=== PATIENT | male | born 1950 | race Caucasian/White ===

== ENCOUNTER → 2016-05-22 | Day surgery (SDC) | payer MEDICARE, MEDICAID ==
[~2016-05-22] VITALS: Ht 182.9 cm; Wt 125.2 kg
[~2016-05-22] MED LIST: APAP/OXYCODONE1 TA1 PO; LISINOPRIL/HCTZ1 TA3 PO; METFORMIN500 MG PO; NEURONTIN800 MG PO; OMEPRAZOLE40 MG PO; PERCOCET 325 MG1 TA4 PO; PERCOCET 5/3251 EACH PO; POTASSIUM CHLO10 ME3 PO; ZANAFLEX4 M1 PO
[2016-05-22 14:07] VITALS: BP 134/85
[2016-05-22 14:32] VITALS: BP 134/85
[2016-05-22 14:33] VITALS: BP 134/85
--- NOTE | 2016-05-22 14:37 | Procedure Note ---
Procedure detail Date of procedure: 05/22/16 Anesthesiologist: Juan David farley CRNA Complications: None Pre-procedure diagnosis: Degenerative disease lumbar spine multiple levels lumbar radiculopathy symptoms. Lumbar spondylosis. Post-procedure diagnosis: Same. Indications for procedure: Patient's a pleasant 66-year-old white male were treating her pain clinic for chronic low back pain secondary to degenerative disease lumbar spine with levels as well as disc herniation L4-5, multiple level disc bulge. Patient's main complaint today is bilateral leg radiculopathy symptoms. Patient states they feel like muscle "spasms" down the backs of his legs. Patient rates his pain 7/ 10. We are medically manage the patient with Percocet 7.5 mg 1 by mouth 4 times a day. Patient reports the pain medicine decrease his pain by 50-75 percent. Patient does not reporting side effects from pain medication. Patient presents today for lumbar epidural steroid injection at the L4-5 level. Procedure detail: Procedure: Lumbar epidural steroid injection under fluoroscopy Informed consent was obtained and the risks and benefits of the procedure were explained to the patient. The patient was taken to the procedure room and noninvasive monitors placed, including noninvasive blood pressure cuff and pulse oximeter. The back was viewed using C-arm Fluoroscopy and prepped using Betadine as a cleansing solution and the L4-L5 interspace was palpated. Skin and subcutaneous tissues were anesthetized using lidocaine 1.5% and a 25-gauge needle. After this, an 18-gauge Touhy epidural needle was placed into the L4-L5 interspace and advanced using fluoroscopic guidance and loss of resistance to air until the epidural space was encountered. After confirmation of needle placement in the epidural space, with dye, a solution containing lidocaine 1.5%, 4 mL and Depo-Medrol 80 mg were incrementally injected into the lumbar epidural space. The patient tolerated the procedure well with no complications. The patient was observed in the Pain Clinic and then discharged home neurologically intact. Plan and disposition: Patient was reevaluated 10 minutes post procedure. He is doing quite well. He'll follow up with us in the pain clinic for further evaluation. at [id number]
[2016-05-22 14:44] VITALS: BP 136/90
--- OUTSIDE RECORDS SUMMARY | 2016-05-22 17:46 | External Medical Summary Rpt ---
Author Author , Organization [employer] Address Unknown Phone Unavailable Care Team Providers Care Car Rental Agent Name Role Phone ONE Change, Unavailable Unavailable ONE Change [facility]ARTINI[facility]AIS [facility] Unavailable Unavailable LABORATORI, [facility] AMISHA DIETRICH MD, PSC, Unavailable Unavailable AMISHA DIETRICH MD, PSC [facility] AND, AYOOB AND Unavailable Unavailable SHANNA BURT, Unavailable Unavailable M.Bill.P.S.CAyush, SHANNA BURT M.D.P.S.CAyush [facility] Unavailable Unavailable [facility] Unavailable Unavailable [facility], [facility] MARILYN SANDERS Unavailable Unavailable MARILYN SHERMAN, MARILYN Unavailable Unavailable LANE BUX ANJ, BUX ANJ Unavailable Unavailable [facility] Unavailable [facility] CELLAROSI - YORBA Unavailable Unavailable PAT, CELLAROSI - YORBA PAT ANTWON BASHIR, ANTWON BASHIR Unavailable Unavailable [facility], Unavailable Unavailable [facility] Unavailable Unavailable SPECIALIST, [facility] SPECIALIST [facility] # [id number], Unavailable Unavailable [facility] # [id number] [facility] [place]available [place], [facility] [place] ESTUS LINDA, ESTUS LINDA Unavailable Unavailable ESTUS, JAVI, ESTUS, Unavailable Unavailable JAVI FINYVES ELL, FINCHUM Unavailable Unavailable [facility] Un[facility], [facility] CAYETANOABBIE JERONIMOA G, Unavailable Unavailable CAYETANOABBIE JERONIMOA G FLASH, JON P, Unavailable Unavailable FLASH, JON P ANDREA BAR, ANDREA BAR Unavailable Unavailable [facility], [facility], Unavailable Unavailable [facility] CUONG DE LA O, CUONG DE LA O Unavailable Unavailable [facility] Unavailable Unavailable [facility]AT, [facility] Un[facility] Unavailable Unavailable [facility], [facility] Unavailable Unavailable [facility], [facility] Unavailable Unavailable [facility], [facility] Unavailable Unavailable [facility], [facility], Unavailable Unavailable [facility] KAREN CRI, KAREN CRI Unavailable Unavailable SHAD LAURA, SHAD LAURA Unavailable Unavailable SHAD LAURA, SHAD LAURA Unavailable Unavailable THI[facility] FAYETTE URBAN Unavailable Unavailable COGOVT, [facility] Unavailable Unavailable COGOVT, [facility] Unavailable Unavailable LABORATO, [facility] Unavailable [facility]available LABORATORY, [facility] Unavailable Unavailable PHARMACY, [facility] LINGREEN DENNIS, Unavailable Unavailable LINGREEN DENNIS MYRA HAM, MYRA HAM Unavailable Unavailable MYRA HAM, MYRA HAM Unavailable Unavailable [facility] Unavailable Unavailable SERVICES, [facility] MITTLESTEADT KENISHA, Unavailable Unavailable MITTLESTEAD[facility] KENISHA MORRIN, MORRIN Unavailable Unavailable [facility] Unavailable Unavailable [facility], [facility], [facility]available Unavailable [facility], Unavailable Unavailable [facility] Unavailable Unavailable INCORPORAT, [facility] RABIEE ABD, RABIEE Unavailable Unavailable [facility] Unavailable [facility] [place], [facility] Unavailable Unavailable [id number] # [id number], [facility] [id number] # [id number] ANTONIO JUSTUS, ANTONIO JUSTUS Unavailable Unavailable MARILYNN SIB, MARILYNN SIB Unavailable Unavailable HEATHER NANCY, HEATHER NANCY Unavailable Unavailable [facility] SPRUIELL LAW, Unavailable Unavailable SPRUIE[facility] LAW SPRUIELL LAW, Unavailable Unavailable [facility] JACQUE AUGUSTO, JACQUE Unavailable Unavailable AUGUSTO JACQUE AUGUSTO, JACQUE Unavailable Unavailable AUGUSTO PHANI KAITLYNN, PHANI Unavailable Unavailable KAITLYNN PHANI KAITLYNN, PHANI Unavailable Unavailable KAITLYNN WADDLES RYA, WADDLES Unavailable Unavailable [id number] # Unavailable Unavailable [id number], [facility][id number] # [id number] [id number] # Unavailable Unavailable [id number], [facility] #[id number] # [id number] DAVID HERCULES Unavailable Unavailable JEREMY STEWART, Unavailable Unavailable JEREMY HERNANDEZ SEMAJ W, SEMAJ W Unavailable Unavailable JEN MAT, JEN MAT Unavailable Unavailable Purpose Continuity of Care Document - 03-09-2009 through 2016 Problems Code Diagnosis DOS Provider Status R76.8 OTHER 05-07-2016 SPECIFIED ABNORMAL IMMUNOLOGIC AL FINDINGS IN SERUM M170 BILATERAL 04-04-2016 [facility] OSTEOARTHRI ASSOCIAT TIS OF KNEE K91064 PAIN IN 04-04-2016 [place] [facility] ASSOCIAT S58299 PAIN IN 04-04-2016 [place] [facility] E119 TYPE 2 04-02-2016 [facility] DIABET[facility] MELLITUS MEDICAL WITHOUT GROUP COMPLICATIO NS G8929 OTHER 04-02-2016 [facility]RONIC [facility] PAIN MEDICAL GROUP I10 ESSENTIAL 04-02-2016 [facility] PRIMARY HEALTH HYPERTENSIO MEDICAL N GROUP J431 PANLOBULAR 04-02-2016 [facility] EMPHYSEMA [facility] MEDICAL GROUP K219 GASTRO-ESOP 04-02-2016 [facility] H REFLUX HEALTH DISEASE MEDICAL WITHOUT GROUP ESOPHAGITIS M545 LOW BACK 04-02-2016 [facility] PAIN [facility]ALTH [facility]ICAL GROUP 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-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 M41582 USP 02-06-2016 [facility] CURRENT USE [facility] OF OPIATE INC ANALGESIC Q53477 EFFUSION 12-02-2015 [facility] RIGHT KNEE [facility] M5116 INTERVERTEB 10-10-2015 [facility] RAL DISC [facility] D/O INC W/RADICULOP ATHY LUMB RGN L36811 OTHER LONG 10-10-2015 [facility] TERM [facility] CURRENT INC DRUG THERAPY M19190 SPONDYLOSIS 04-29-2015 [facility] W/O [facility] MYELOPATH/R INC ADICULOPATH Y LUMB RGN M069 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, ARTHRITIS , PSC UNSPECIFIED D04013 SPONDYLOSIS 03-18-2015 [facility] W/O [facility] MYELOPATH/R INC ADICULPATHY LS RGN E785 HYPERLIPIDE 03-08-2015 [facility]IN [facility] UNSPECIFIED FAMILY CLINI M549 DORSALGIA 03-04-2015 [facility] UNSPECIFIED [facility] HOSP INC M5030 OTH 02-14-2015 [facility] CERVICAL [facility] DISC INC DEGENERATIO N UNS CERV REGION G894 CHRONIC 12-06-2014 [facility] PAIN [facility] SYNDROME FAMILY CLINI 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 UNS CLINI 80345 DIAB W/O 11-05-2014 [facility] COMP TYPE [facility] II/UNS NOT HOLDINGS STATED UNCNTRL 52564 DIAB 11-05-2014 [facility] W/NEURO [facility] MANIFESTS HOLDINGS TYPE II/UNS NOT UNCNTRL 4019 UNSPECIFIED 11-05-2014 [facility] ESSENTIAL [facility] HYPERTENSIO HOLDINGS N 73067 UNSPECIFIED 11-05-2014 [facility] [place] ARTHROPATHY HOLDINGS SITE UNSPECIFIED 74223 SHORTNESS 10-15-2014 [facility] [place] [facility] BREATH [facility] 7932 NONSPC ABN 10-15-2014 [facility] RAD&OTH HOSPITA EXAM OTH INTRTHOR ORGN 95956 UNSPECIFIED 10-06-2014 [facility] SLEEP [facility] DISTURBANCE FAMILY CLINI 7823 EDEMA 07-08-2014 [facility] 84885 ESOPHAGEAL 06-21-2014 [facility] REFLUX GROUND FAMILY CLINI 3670 HYPERMETROP 12-07-2013 SPRUIELL IA LAW 4011 ESSENTIAL 09-25-2013 [facility] N, BENIGN 17142 IMPOTENCE 09-25-2013 [facility] ORIGIN 73294 OTHER 09-25-2013 [facility] FATIGUE 7213 LUMBOSACRAL 08-06-2013 [facility] PAIN SPONDYLOSIS SPECIALIST WITHOUT MYELOPATHY 21844 DEGEN 08-06-2013 [facility] LUMBAR/LUMB H PAIN OSACRAL SPECIALIST INTERVERTEB RAL DISC 71271 SPINAL STEN 08-06-2013 [facility] LUMB REG H PAIN W/O SPECIALIST NEUROGENIC CLAUDICATIO N 7244 THORACIC/CLARY 08-06-2013 [facility] MBOSACRAL H PAIN NEURITIS/RA SPECIALIST DICULITIS UNSPEC 48395 DISPLCMT 05-26-2013 [facility] INTERVERT OF [place] DISC W/O MYELOPATHY 7248 OTHER 05-26-2013 [facility] SYMPTOMS [facility] REFERABLE OF [place] TO BACK 7384 ACQUIRED 05-26-2013 [facility] SPONDYLOLIS [facility] THESIS OF [place] 65753 DIAB W/O 04-14-2013 [facility] COMP TYPE II/UNS TYPE UNCNTRL V700 ROUTINE 04-14-2013 [facility] MEDICAL EXAM@HEALTH CARE FACL 60182 OTHER 12-08-2012 PHANI KAITLYNN CHRONIC PAIN 496 CHRONIC 12-08-2012 PHANI KAITLYNN AIRWAY OBSTRUCTION NEC 7242 LUMBAGO 12-08-2012 PH[facility] KAITLYNN 42318 OBESITY, 07-30-2012 [facility] OF UNSPECIFIED [facility] HOLDINGS 17411 CRAMP OF 01-04-2012 [facility]B [facility] 7140 RHEUMATOID 2012 MYRA HAM ARTHRITIS 32506 PRIMARY 2012 [facility] H[facility] LOCALIZED OSTEOARTHRO SIS LOWER LEG 43776 PAIN IN 12-19-2011 PHANI KAITLYNN JOINT PELVIC REGION AND THIGH 21970 PAIN IN 12-19-2011 [place] JOINT, [facility] LOWER LEG [facility] 7245 UNSPECIFIED 12-19-2011 [facility] 05391 OTHER 12-19-2011 [facility] [place] NONSPECIFIC [facility] ABNORMAL FINDING OF LUNG FIELD 5369 UNSPECIFIED 09-10-2011 SHAD SANCHEZ FUNCTIONAL DISORDER OF STOMACH 7226 DEGENERATIO 09-10-2011 [facility] SANCHEZ N INTERVERTEB RAL DISC SITE UNSPEC 77024 DIARRHEA 09-10-2011 [facility] SANC[facility]Z 97627 MORBID 06-27-2011 [facility] OBESITY V5869 LONG-TERM 06-25-2011 JACQUE CASAS (CURRENT) USE OF OTHER MEDICATIONS 29465 [employer] [facility] ULCR 06-17-2011 [facility] ACUT/CHRN HOSPITA W/O HEMOR PERF/OBST 16740 FEVER 06-17-2011 [facility] UNSPECIFIED [facility] 45595 ABDOMINAL 06-17-2011 [facility] [place] PA[facility] RIGHT RADIOLOGY UPPER QUADRANT 05067 ABDOMINAL 06-17-2011 [facility] PAIN, [facility] EPIGASTRIC [facility] 25690 NAUSEA WITH 06-11-2011 [facility] 78482 ABDOMINAL 06-11-2011 THIEN FAYETTE PAIN, URBAN UNSPECIFIED COGOVT SITE 61820 OSTEOARTHRO 05-25-2011 JACQUE CASAS S UNSPEC WHETHER GEN/LOC UNSPEC SITE 7234 BRACHIAL 05-25-2011 JACQUE CASAS NEURITIS OR RADICULITIS NOS 7099 UNSPECIFIED 03-26-2011 JACQUE CASAS DISORDER OF SKIN&SUBCUT ANEOUS TISSUE 92774 PAIN IN 03-26-2011 JACQUE CASAS JOINT, SHOULDER REGION 7291 UNSPECIFIED 03-26-2011 JACQUE CASAS MYALGIA AND MYOSITIS 7224 DEGENERATIO 03-24-2011 [facility] INTERVERTEB RAL DISC 62484 INJR OTH 03-24-2011 [place] [facility] SPE[facility] SERV INTRATHR FOUNDATIO ORGN W/O OPN WND CAV OTH 920 CONTUSION 03-24-2011 [facility] FACE SERV SCALP AND FOUNDATION NECK EXCEPT EYE 13217 INJURY OF 03-24-2011 [facility] F[facility] AND SERV NECK OTHER FOUNDATION AND UNSPECIFIED 9596 INJURY 03-24-2011 [place] [facility] OTHER AND SERV UNSPECIFIED FOUNDATIO HIP AND THIGH 9598 INJURY 03-24-2011 THI[facility] FAYETTE OTH&UNSPEC URBAN OTH SPEC COGOVT SITES INCL MULTIPLE E8889 UNSPECIFIED 03-24-2011 [facility] FALL SERV [facility] 7243 SCIATICA 02-13-2011 JACQUE CASAS 7292 UNSPECIFIED 02-13-2011 JACQUE CASAS NEURALGIA NEURITIS AND RADICULITIS V5883 ENCOUNTER 02-13-2011 [facility] DRUG MONITORING 78067 UNSPECIFIED 08-10-2010 [place] [facility] CY 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 7202 SACROILIITI 04-12-2010 [facility] S NOT BURT, ELSEWHERE [facility] CLASSIFIED 7862 COUGH 03-08-2010 [facility] 7931 NONSPEC 03-08-2010 [facility] [place] FIND RAD [facility]IOLOG[facility] OTH EXAM BODY STRUCT LUNG FIELD 32599 CHEST PAIN 11-22-2009 NEW UNSPECIFIED [facility] PSC 3569 UNSPEC 09-02-2009 [facility] HEREDIT&IDI CLINIC OPATHI LABORATORY PERIPHERAL NEUROPATHY 7866 SWELLING, 09-02-2009 [place] [facility] IN [facility] CHEST 61404 OTHER 04-18-2009 [place] [facility] DISEASES OF SERV LUNG NOT FOUNDATIO ELSEWHERE CLASSIFIED 2357 NEOPLASM 04-01-2009 [facility] TR[facility] BRONCHUS&CLARY NG 7856 ENLARGEMENT 03-25-2009 [facility] [place] OF LYMPH RADIOLOGY NODES 7910 PROTEINURIA 03-09-2009 [facility] Allergies, Adverse Reactions, Alerts Clinical Alert Notifications Alert Diabetes: no A1C in the last 6 months Diabetes: no eye exam in the last 365 days Diabetes: no influenza vaccine in the last 365 days Diabetes: no lipid panel in the last 365 days Diabetes: no urine protein screening in the last 365 days Medications Na ND Rx Da Fi Fi Am Da Di Ph RX Ph St me C No te ll ll ou ys ag ar # ys at rm s nt no ma ic us Or Da si cy ia de te s n re d OX 00 10 10 0 15 7 PA 20 FL Ac YC 40 -0 -0 .0 SA 97 IN ti OD 68 4- 4- 00 DE 69 CH ve ON 51 20 20 NA 3 UM E 50 11 11 HC 1 PH EL L AR LE 15 MA N CY J MG TA BL ET GA 16 10 10 1 30 30 PA 61 FL Ac BA 71 -0 -0 .0 SA 08 IN ti PE 40 4- 4- 00 DE 75 CH ve NT 66 20 20 NA 7 UM IN 20 11 11 2 PH EL 30 AR LE 0 MA N MG CY J CA PS UL E ME 00 10 10 1 30 30 PA 61 FL Ac LO 37 -0 -0 .0 SA 08 IN ti XI 81 4- 4- 00 DE 75 CH ve CA 06 20 20 NA 8 UM M 60 11 11 7. 5 PH EL 5 AR LE MG MA N CY J TA BL ET FU 00 05 09 3 30 30 LE 26 WI Ac RO 05 -3 -0 .0 XI 99 TT ti SE 44 1- 8- 00 NG 52 MA ve KS 29 20 20 TO N DE 72 11 11 N WI 5 CL LL 20 IN IA IC M MG PH TA AR BL MA ET CY OX 00 08 09 0 18 30 PA 20 CL Ac YC 40 -0 -0 0. SA 97 AR ti OD 68 4- 2- 00 DE 22 K ve ON 53 20 20 0 NA 9 PA E 00 11 11 UL HC 1 PH A L AR 30 MA CY MG TA BL ET GA 16 08 09 1 30 30 PA 61 CL Ac BA 71 -0 -0 .0 SA 08 AR ti PE 40 4- 2- 00 DE 32 K ve NT 66 20 20 NA 2 PA IN 20 11 11 UL 2 PH A 30 AR 0 MA MG CY CA PS UL E GA 16 08 08 1 30 30 PA 61 CL Ac BA 71 -0 -0 .0 SA 08 AR ti PE 40 4- 5- 00 DE 32 K ve NT 66 20 20 NA 2 PA IN 20 11 11 UL 2 PH A 30 AR 0 MA MG CY CA PS UL E OX 00 08 08 0 18 30 PA 20 CL Ac YC 40 -0 -0 0. SA 96 AR ti OD 68 4- 5- 00 DE 81 K ve ON 53 20 20 0 NA 2 PA E 00 11 11 UL HC 1 PH A L AR 30 MA CY MG TA BL ET FU 00 05 08 3 30 30 LE 26 WI Ac RO 05 -3 -0 .0 XI 99 TT ti SE 44 1- 1- 00 NG 52 MA ve KS 29 20 20 TO N DE 72 11 11 N WI 5 CL LL 20 IN IA IC M MG PH TA AR BL MA ET CY 52 06 07 0 18 30 PA 20 FL Ac 15 -0 -0 0. SA 96 IN ti 20 1 7 DE 39 CH ve 21 20 20 0 NA 3 UM 50 11 11 2 PH EL AR LE MA N CY J GA 16 06 07 1 30 30 PA 61 FL Ac BA 71 -0 -0 .0 SA 07 IN ti PE 40 1 7 DE 84 CH ve NT 66 20 20 NA 7 UM IN 20 11 11 2 PH EL 30 AR LE 0 MA N MG CY J CA PS UL E AM 00 06 07 1 30 30 PA 61 FL Ac IT 60 -0 -0 .0 SA 07 IN ti RI 32 1 7 DE 84 CH ve PT 21 20 20 NA 8 UM YL 33 11 11 IN 2 PH EL E AR LE HC MA N L CY J 25 MG TA B ME 00 06 07 1 30 30 PA 61 FL Ac LO 37 -0 -0 .0 SA 07 IN ti XI 81 1 7 DE 84 CH ve CA 06 20 20 NA 9 UM M 60 11 11 7. 1 PH EL 5 AR LE MG MA N CY J TA BL ET 52 06 06 0 18 30 PA 20 FL Ac 15 -0 -0 0. SA 95 IN ti 20 1- 3 00 DE 92 CH ve 21 20 20 0 NA 3 UM 50 11 11 2 PH EL AR LE MA N CY J GA 16 06 06 1 30 30 PA 61 FL Ac BA 71 -0 -0 .0 SA 07 IN ti PE 40 1- 3- 00 DE 84 CH ve NT 66 20 20 NA 7 UM IN 20 11 11 2 PH EL 30 AR LE 0 MA N MG CY J CA PS UL E AM 00 06 06 1 30 30 PA 61 FL Ac IT 60 -0 -0 .0 SA 07 IN ti RI 32 1- 3- 00 DE 84 CH ve PT 21 20 20 NA 8 UM YL 33 11 11 IN 2 PH EL E AR LE HC MA N L CY J 25 MG TA B ME 00 06 06 1 30 30 PA 61 FL Ac LO 37 -0 -0 .0 SA 07 IN ti XI 81 1- 3- 00 DE 84 CH ve CA 06 20 20 NA 9 UM M 60 11 11 7. 1 PH EL 5 AR LE MG MA N CY J TA BL ET FU 00 05 05 3 30 30 LE 26 WI Ac RO 05 -3 -3 .0 XI 99 TT ti SE 44 1- 1- 00 NG 52 MA ve KS 29 20 20 TO N DE 72 11 11 N WI 5 CL LL 20 IN IA IC M MG PH TA AR BL MA ET CY GA 16 02 05 1 30 30 PA 61 CL Ac BA 71 -0 -0 .0 SA 07 AR ti PE 40 9- 6- 00 DE 10 K ve NT 66 20 20 NA 8 PA IN 20 11 11 UL 2 PH A 30 AR 0 MA MG CY CA PS UL E 52 04 05 0 18 30 PA 20 CL Ac 15 -0 -0 0. SA 95 AR ti 20 6- 6- 00 DE 54 K ve 21 20 20 0 NA 2 PA 50 11 11 UL 2 PH A AR MA CY ME 00 02 05 1 30 30 PA 61 CL Ac LO 37 -0 -0 .0 SA 07 AR ti XI 81 9- 6- 00 DE 10 K ve CA 06 20 20 NA 6 PA M 60 11 11 UL 7. 1 PH A 5 AR MG MA CY TA BL ET AM 00 02 05 1 30 30 PA 61 CL Ac IT 60 -0 -0 .0 SA 07 AR ti RI 32 9- 6- 00 DE 10 K ve PT 21 20 20 NA 7 PA YL 33 11 11 UL IN 2 PH A E AR HC MA L CY 25 MG TA B SE 31 09 04 5 15 30 RI 35 WI Ac RT 72 -1 -1 .0 TE 47 TT ti RA 20 6- 0- 00 48 MA ve LI 21 20 20 AI N NE 43 10 11 D WI 0 PH LL HC AR IA L MA M 10 CY 0 MG 03 91 TA 3 BL # ET 03 91 ME 68 04 04 1 30 30 WA 30 CL Ac LO 18 -0 -0 .0 LG 01 AR ti XI 00 6 8- 00 RE 54 K ve CA 50 20 20 EN 8 PA M 10 11 11 S UL 7. 3 #4 A 5 89 MG 2 # TA 48 BL 92 ET AM 00 04 04 1 30 30 WA 30 CL Ac IT 37 -0 -0 .0 LG 01 AR ti RI 82 6- 8- 00 RE 54 K ve PT 62 20 20 EN 9 PA YL 51 11 11 S UL IN 0 #4 A E 89 HC 2 L # 25 48 92 MG TA B 52 04 04 0 18 30 PA 20 CL Ac 15 -0 -0 0. SA 95 AR ti 20 6- 8- 00 DE 12 K ve 21 20 20 0 NA 7 PA 50 11 11 UL 2 PH A AR MA CY GA 53 04 04 0 30 30 WA 10 CL Ac BA 74 -0 -0 .0 LG 49 AR ti PE 60 6- 7- 00 RE 35 K ve NT 10 20 20 EN PA IN 20 11 11 S UL 5 #1 A 30 20 0 75 MG # CA 12 PS 07 UL 5 E 52 02 03 0 18 30 WA 29 CL Ac 15 -0 -1 0. LG 91 AR ti 20 9- 2- 00 RE 31 K ve 21 20 20 0 EN 5 PA 50 11 11 S UL 2 #4 A 89 2 # 48 92 SE 31 09 03 5 15 30 RI 35 WI Ac RT 72 -1 -0 .0 TE 47 TT ti RA 20 6- 3- 00 48 MA ve LI 21 20 20 AI N NE 43 10 11 D WI 0 PH LL HC AR IA L MA M 10 CY 0 MG 03 91 TA 3 BL # ET 03 91 FU 00 12 03 2 30 30 LE 26 AD Ac RO 37 -1 -0 .0 XI 74 AM ti SE 80 3- 1- 00 NG 26 S ve KS 20 20 20 TO KS DE 80 10 11 N CH 1 CL EL 20 IN LE IC F MG PH TA AR BL MA ET CY OX 00 02 02 0 18 30 PA 20 CL Ac YC 40 -0 -1 0. SA 94 AR ti OD 68 9- 0- 00 DE 34 K ve ON 53 20 20 0 NA 0 PA E 00 11 11 UL HC 1 PH A L AR 30 MA CY MG TA BL ET ME 68 02 02 1 30 30 PA 61 CL Ac LO 18 -0 -1 .0 SA 07 AR ti XI 00 9- 0- 00 DE 10 K ve CA 50 20 20 NA 6 PA M 10 11 11 UL 7. 1 PH A 5 AR MG MA CY TA BL ET AM 00 02 02 1 30 30 PA 61 CL Ac IT 60 -0 -1 .0 SA 07 AR ti RI 32 9- 0- 00 DE 10 K ve PT 21 20 20 NA 7 PA YL 32 11 11 UL IN 1 PH A E AR HC MA L CY 25 MG TA B GA 31 02 02 1 30 30 PA 61 CL Ac BA 72 -0 -1 .0 SA 07 AR ti PE 20 9- 0- 00 DE 10 K ve NT 22 20 20 NA 8 PA IN 20 11 11 UL 5 PH A 30 AR 0 MA MG CY CA PS UL E SE 31 09 02 5 15 30 RI 35 WI Ac RT 72 -1 -0 .0 TE 47 TT ti RA 20 6- 4- 00 48 MA ve LI 21 20 20 AI N NE 43 10 11 D WI 0 PH LL HC AR IA L MA M 10 CY 0 MG 03 91 TA 3 BL # ET FU 00 12 01 2 30 30 LE 26 AD Ac RO 37 -1 -1 .0 XI 74 AM ti SE 80 3- 3- 00 NG 26 S ve KS 20 20 20 TO KS DE 80 10 11 N CH 1 CL EL 20 IN LE IC F MG PH TA AR BL MA ET CY OX 00 01 01 0 18 30 EA 20 CL Ac YC 40 -1 -[address] 76 AR ti OD 68 1- 1- 00 SI 09 K ve ON 53 20 20 0 DE PA E 00 11 11 UL HC 1 PH A L AR 30 MA CY MG OF TA BL CY ET NT HI AN A SE 59 09 12 5 15 30 RI 35 WI Ac RT 76 -1 -3 .0 TE 47 TT ti RA 24 6- 1- 00 48 MA ve LI 91 20 20 AI N NE 00 10 10 D WI 1 PH LL HC AR IA L MA M 10 CY 0 MG 03 91 TA 3 BL # ET FU 00 12 12 2 30 30 LE 26 AD Ac RO 37 -1 -1 .0 XI 74 AM ti SE 80 3- 3- 00 NG 26 S ve KS 20 20 20 TO KS DE 80 10 10 N CH 1 CL EL 20 IN LE IC F MG PH TA AR BL MA ET CY OX 00 12 12 0 18 30 PA 20 BA Ac YC 40 -0 -0 0. SA 93 LL ti OD 68 9- 9- 00 DE 52 AR ve ON 53 20 20 0 NA 1 D E 00 10 10 KA HC 1 PH TH L AR ER 30 MA IN CY E MG E TA BL ET SE 59 09 12 5 15 30 RI 35 WI Ac RT 76 -1 -0 .0 TE 47 TT ti RA 24 6- 2- 00 48 MA ve LI 91 20 20 AI N NE 00 10 10 D WI 1 PH LL HC AR IA L MA M 10 CY 0 MG 03 91 TA 3 BL # ET 03 91 OX 00 11 11 0 18 30 EA 19 CL Ac YC 40 -1 -[address] 94 AR ti OD 68 2- 2- 00 SI 56 K ve ON 53 20 20 0 DE PA E 00 10 10 UL HC 1 PH A L AR 30 MA CY MG OF TA BL CY ET NT HI AN A AM 00 11 11 1 30 30 EA 19 CL Ac IT 37 -1 -[address] 93 AR ti RI 82 1- 1- 00 SI 63 K ve PT 62 20 20 DE PA YL 51 10 10 UL IN 0 PH A E AR HC MA L CY 25 OF MG CY TA NT B HI AN A OX 00 10 10 0 18 30 EA 19 CL Ac YC 40 -1 -[address] 51 AR ti OD 68 3- 3- 00 SI 96 K ve ON 53 20 20 0 DE PA E 00 10 10 UL HC 1 PH A L AR 30 MA CY MG OF TA BL CY ET NT HI AN A SE 59 09 09 5 15 30 RI 35 WI Ac RT 76 -1 -1 .0 TE 47 TT ti RA 24 6- 6- 00 48 MA ve LI 91 20 20 AI N NE 00 10 10 D WI 1 PH LL HC AR IA L MA M 10 CY 0 MG 03 91 TA 3 BL # ET 03 91 52 08 09 0 18 30 PA 20 CL Ac 15 -1 -1 0. SA 92 AR ti 20 6- 5- 00 DE 39 K ve 21 20 20 0 NA 2 PA 50 10 10 UL 2 PH A AR MA CY AM 00 08 09 1 30 30 PA 61 CL Ac IT 60 -1 -1 .0 SA 05 AR ti RI 32 6- 5- 00 DE 90 K ve PT 21 20 20 NA 0 PA YL 23 10 10 UL IN 2 PH A E AR HC MA L CY 10 MG TA B 52 08 08 0 18 30 PA 20 CL Ac 15 -1 -1 0. SA 91 AR ti 20 6- 6- 00 DE 96 K ve 21 20 20 0 NA 8 PA 50 10 10 UL 2 PH A AR MA CY AM 00 08 08 1 30 30 PA 61 CL Ac IT 60 -1 -1 .0 SA 05 AR ti RI 32 6- 6- 00 DE 90 K ve PT 21 20 20 NA 0 PA YL 23 10 10 UL IN 2 PH A E AR HC MA L CY 10 MG TA B FU 00 06 06 0 10 5 CV 37 CU Ac RO 37 -2 -2 .0 S 96 DD ti SE 80 9- 9- 00 PH 91 Y ve KS 20 20 20 AR JA DE 81 10 10 MA NA 0 CY S 20 # MG 02 33 TA 2 BL ET LI 68 01 01 00 30 30 HO 60 WE Ac SI 18 -0 -[address] ti NO 00 6- 4- 00 TO 38 ve KS 51 20 20 WN 0 HE IL 80 10 10 NR -H [address] AR M Z MA 10 CY -1 2. 5 MG TA B Procedures Procedure DOS Code Location Performer Comment INJECTION J1030 [facility] ORTHOPEDI ORTHOPEDI METHYLPRE C C DNISOLONE ASSOCIAT ASSOCIAT ACETATE 40 MG RADIOLOGI 93746 [facility] EXAM 7 ORTHOPEDI KNEE C COMPLETE ASSOCIAT 4/MORE VIEWS ARTHROCEN 62294 [facility] ASPIR&/IN C J MAJOR ASSOCIAT JT/[facility] G0463 [facility] OUTPATIEN 6 [facility] VISIT ASSESS & MGMT PT DRUG TST G0477 [facility] PRESUMP;C 6 [facility] PBL [facility]ING INC INC READ DC OPT OBV ONLY INJECTION J1030 [facility] [address] METHYLP[address] C DNISOLONE ASSOCIAT ACETATE 40 MG ARTHROCEN 58753 [facility] TESIS 6 ORTHOPEDI ORTHOPEDI ASPIR&/IN C C J MAJOR ASSOCIAT ASSOCIAT JT/[facility] W/O RADIOLOGI 13302 [facility]ONDO[facility] CHEONDOISM C 6 [facility]AMIN[facility] ON KNEE 3 VIEWS DRUG TEST G0481 LENI FARRAR DEFINITV [address] [address] [address] ID INC INC METH P DAY 8-14 DRUG HOSPITAL G0463 LENI FARR[facility] OUTPATIEN 6 [facility] T CLIN INC INC VISIT ASSESS & MGMT PT DRUG TST G0477 [facility] FARR[facility] PRESUMP;C 6 [facility] PBL BEING INC INC READ DC OPT OBV ONLY DRUG TST G0477 L[facility] FARRAR PRESUMP;C 6 [facility] PBL BEING INC INC READ DC OPT OBV ONLY HOSPITAL G0463 LENI LENI OUTPATIEN 6 [facility] T CLIN INC INC VISIT ASSESS & [place] NJX 42945 LENI FARRAR DX/THER 6 [facility] AGT PVRT INC INC FACET JT LMBR/SAC 1 [place]EL NJX 13745 AMISHA BUX ANJ DX/THER 6 MD KAUR, AGT PVRT PSC FACET JT LMBR/SAC 2ND [place]EVEL NJX 68731 AMISHA BUX ANJ DX/THER 6 MD KAUR, AGT PVRT PSC FACET JT LMBR/SAC 3+ LEVEL DRUG TST G0477 L[facility]I FARRAR PRESUMP;C 6 [facility] PBL BEING INC INC READ [place]X [address] AMISHA KAREN CRI DX/THER 6 MD KAUR, AGT PVRT PSC FACET JT LMBR/SAC 3+ [place] NJX [address]958 AMISHA KAREN CRI DX/THER 6 MD KAUR, AGT PVRT PSC FACET JT LMBR/SAC 2ND LEVEL NJX 72078 AMISHA KAREN CRI DX/THER 6 MD KAUR, AGT PVRT PSC FACET JT LMBR/SAC 1 LEVEL THERAPEUT 40323 LENI FARRAR IC PX 1/> 6 [facility] AREAS INC INC EACH 15 MIN EXERCISES APPL 33034 LENI FARRAR MODALITY 5 [facility] 1/> AREAS INC INC ULTRASOUN D EA 15 MIN APPL 99537 [facility] F[facility] MODALITY 5 [facility] 1/> AREAS INC INC ELEC STIMJ UNATTENDE D THERAPEUT 67909 LENI FARRAR IC PX 1/> 5 [facility] INC EACH 15 MIN EXERCISES THERAPEUT 51941 LENI FARRAR IC PX 1/> 5 [facility] AREAS INC INC EACH 15 MIN EXERCISES APPL 56845 LENI FARRAR MODALITY 5 [facility] 1/> AREAS INC INC ELEC STIMJ UNATTENDE D APPL 69044 LENI FARRAR MODALITY 5 [facility] 1/> AREAS INC INC ULTRASOUN D EA 15 MIN APPL 80650 L[facility]I FARR[facility] MODALITY 5 [facility] 1/> AREAS INC INC ULTRASOUN D EA 15 MIN APPL 47851 LENI FARRAR [facility] AREAS INC INC ELEC STIMJ UNATTENDE D APPL [id number] LENI [facility] AREAS INC INC ELEC STIMJ UNATTENDE D APPL 45526 LENI [facility]ARRAR [facility]/> AREAS INC INC ULTRASOUN D EA 15 MIN PHYSICAL 51359 LENI FARRAR THERAPY 5 [facility] EVALUATIO INC INC N ALBUMIN 12780 LAB [facility] LAB LUC[facility] URINE 5 MANUELA MANUELA MICROALBU [facility]INGS HOLDINGS MIN QUANTIATI VE SEDIMENTA 39314 LAB L[facility] LAB LUCILA TION RATE 5 MANUELA MANUELA [place] [address] LAB L[facility] LAB LUCILA BLOOD/URI 5 [facility] ACID HOLDINGS HOLDINGS COMPREHEN 08819 LAB LUC[facility]A LAB LUCILA SIVE 5 [facility] METABOLIC HOLDINGS HOLDINGS PANEL RHEUMATOI 07823 LAB LUCILA LAB LUCILA D FACTOR 5 MANUELA MANUELA QUANTITAT HOLDINGS HOLDINGS TOMEKA HEMOGLOBI 82000 LAB LUCILA LAB LUCILA N 5 MANUELA MANUELA GLYCOSYLA HOLDINGS HOLDINGS RIDDHI A1C RADIOLOGI 17213 [facility] EXAM 5 N N CHEST 2 COMMUNTIY COMMUNTIY VIEWS HOSPITA HOSPITA FRONTAL&L ATERAL LIPID 52914 LAB LUCILA LAB LUCILA PANEL 5 MANUELA MANUELA HOLDINGS HOLDINGS HEMOGLOBI 14387 LAB LUCILA LAB LUCILA N 5 [facility] GLYCOSYLA HOLDINGS HOLDINGS RIDDHI A1C GENERAL 60642 LAB LUCILA LAB LUCILA HEALTH 5 MANUELA MANUELA PANEL HOLDINGS HOLDINGS COLLECTIO 15211 [facility] CRUZ N VENOUS 5 GROUND BLOOD FAMILY VENIPUNCT CLINI URE URNLS DIP 89043 [facility] CRUZ 5 GROUND STICK/TAB FAMILY LET RGNT CLINI NON-AUTO W/O MICRSCP BLOOD 80293 [facility] COUNT 4 DIAGNOSTI DIAGNOSTI COMPLETE CS CS AUTO&AUTO INCORPORA DIFRNTL T WBC LIPID 62872 [facility] PANEL 4 DIAGNOSTI DIAGNOSTI CS CS INCORPORA T COMPREHEN 56502 [facility] SIVE 4 DIAGNOSTI DIAGNOSTI METABOLIC [place] [address] [facility] THYROID 4 DIAGNOSTI DIAGNOSTI STIMULATI CS [place] [address] [facility] PROSTATE 4 DIAGNOSTI DIAGNOSTI SPECIFIC CS CS ANTIGEN INCORPORA TOTAL T INJECTION J1040 [facility] COMMONWEA 4 LTH PAIN LTH PAIN METHYLPRE SPECIALIS SPECIALIS DNISOLONE T T ACETATE 80 MG FLUORO 77899 [facility] LINGREEN NEEDLE/CA 4 LTH PAIN DENNIS TH SPECIALIS SPINE/PAR T ASPINAL DX/THER NJX 54785 [facility] DX/THER 4 LTH PAIN DENNIS SBST SPECIALIS EPIDURAL/ T SUBARACH LUMBAR/SA CRAL LOCM Q9967 [facility] LINGREEN 300-399 4 LTH PAIN DENNIS MG/ML SPECIALIS IODINE T CONCENTRA TION PER ML MRI 40122 RADIOLOGY ANTONIO JUSTUS SPINAL 4 CANAL ASSOCIATE LUMBAR S OF FLOYD W/O CONTRAST MATERIAL HEMOGLOBI 99272 [facility] QUEST N 4 DIAGNOSTI DIAGNOSTI GLYCOSYLA CS CS RIDDH[place] [address] LAB LUCILA LAB LUCILA PROSTATE 3 OF AMERIC SPECIFIC MANUELA [place] [address] LAB LUCILA LAB LUCILA PROSTATE 3 OF AMERIC SPECIFIC MANUELA [place] [address] LAB LUCILA LAB LUCILA THYROID 3 OF AMERIC STIMULATI MANUELA HOLDING NG HOLDINGS HORMONE TSH COMPREHEN 22043 LAB LUCILA LAB LUCILA SIVE 3 OF AMERIC METABOLIC MANUELA HOLDING PANEL HOLDINGS BLOOD 44301 [facility] COUNT 3 [facility] COMPLETE AUTO&AUTO DIFRNTL WBC HEMOGLOBI 28440 LAB LUCILA LAB LUCILA N 3 OF AMERIC GLYCOSYLA MANUELA HOLDING RIDDHI A1C HOLDINGS POTASSIUM 97125 [facility] SERUM 2 N N PLASMA/WH [facility] OLE BLOOD HOSPITA HOSPITA COLLECTIO 33505 [facility] N VENOUS 2 N N BLOOD [facility] VENIPUNCT HOSPITA HOSPITA URE DRUG SCR G0434 MYRA HAM MYRA HAM NOT 2 CHROMATOG RAPHIC; ANY NUMBER PT ENC RADEX 10050 [facility] SPINE 2 N N LUMBOSACR [facility] AL 2/3 HOSPITA HOSPITA VIEWS COMPREHEN 10568 [facility] SIVE 2 N N METABOLIC [facility] PANEL HOSPITA HOSPITA COLLECTIO 54500 [facility] N VENOUS 2 N N BLOOD [facility] VENIPUNCT HOSPITA HOSPITA URE ECG 21794 [facility] ROUTINE 2 N N ECG [facility] W/LEAST HOSPITA HOSPITA 12 LDS TRCG ONLY W/O I&R RADEX HIP 51535 [facility] 2 N N UNILATERA [facility] L H[facility] HOSPITA COMPLETE MINIMUM 2 VIEWS RADEX 91175 [facility] [place] JEN MAT HIPS 2 RADIOLOGY BILATERAL 2 VIEWS ANTEROPOS T PELVIS RADIOLOGI 25522 [facility] C EXAM 2 N N CHEST 2 [facility] VIEWS HOSPITA HOSPITA FRONTAL&L ATERAL BLOOD 25046 [facility] COUNT 2 N N COMPLETE [facility] AUTO&AUTO HOSPITA [place] [address] [facility] SHIGA-LIK 2 ESOTERIC ESOTERIC E TOXIN LABORATOR LABORATOR I I CUL BACT 20073 [facility] STOOL 2 ESOTERIC ESOTERIC AEROBIC LABORATOR LABORATOR ADDL I I PATHOGENS &ID EA CUL BACT 56870 [facility]ART[facility] STOOL 2 ESOTERIC ESOTERIC AEROBIC LABORATOR LABORATOR ISOL I I SALMONELL A&SHIGELL OVA&MISTY 87287 [facility] MART[facility] ITES 2 ESOTERIC ESOTERIC DIRECT LABORATOR LABORATOR SMEARS I I CONCENTRA TION & ID THER 14469 [facility] PROPH/DX 2 N N NJX IV [facility] PUSH HOSPITA HOSPITA SINGLE/1S T SBST/[place] [address] [facility] LIPASE 2 N N [facility] H[facility] HOSPITA INJECTION J2405 [facility] 2 N N ONDANSETR [facility] ON HCL HOSPITA HOSPITA PER 1 MG LOCM Q9967 [facility] 300-399 2 N N MG/ML [facility] IODINE HOSPITA HOSPITA [place] [address] [facility] AMYLASE 2 N N [facility] HOSPITA COMPREHEN 68810 [facility] SIVE 2 N N METABOLIC [facility] [place] [address] [facility] INFUSION 2 N N HYDRATION [facility] EACH HOSPITA HOSPITA ADDITIONA L HOUR THER 62459 [facility] PROPH/DX 2 N N NJX EA [facility] SEQL IV HOSPITA HOSPITA PUSH SBST/DRUG FAC INJECTION J2270 [facility] MORPHINE 2 N N SULFATE [facility] UP TO 10 HOSPITA HOSPITA MG HI OSM Q9963 [facility] CONTRST 2 N N MATL [facility] [phone] HOSPITA HOSPITA MG/ML IODINE CONC ML THERAPEUT 70716 [facility] IC 2 N N INJECTION [facility] IV PUSH [place] [address] [facility] ABDOMEN & 2 N N PELVIS [facility] W/CONTRAS HOSPITA HOSPITA T MATERIAL URNLS DIP 09935 [facility] 2 N N STICK/TAB [facility] LET HOSPITA HOSPITA REAGENT AUTO MICROSCOP Y BLOOD 12695 [facility] COUNT 2 N N COMPLETE [facility] AUTO&AUTO [place] [address] [facility] [place] [facility] ABDOMINAL 2 RADIOLOGY REAL TIME W/IMAGE LIMITED AMBULANCE A0429 THIEN THIEN SERVICE 2 FAYETTE FAYETTE BLS [facility]ERG[facility] COGOVT TRANSPORT GROUND A0425 THIEN THIEN MILEAGE 2 FAY[place] FAYETTE PER [facility] STATUTE COGOVT COGOVT MILE DRUG SCR G0434 JACQUE JACQUE NOT 2 [facility] A[facility]UST[facility] CHROMATOG RAPHIC; ANY NUMBER PT ENC DRUG SCR G0434 JACQUE JACQUE NOT 2 [facility] A[facility]UST[facility] CHROMATOG RAPHIC; ANY NUMBER PT ENC AMB A0427 THIEN THIEN SERVICE 2 FAYETTE FAYETTE ALS [facility] COGOVT TRANSPORT LEVEL 1 RADIOLOGI 64027 [place] AYOO[place] AND C 2 MEDICAL EXAMINATI SERV ON CHEST FOUNDATIO SINGLE VIEW FRONTAL GROUND A0425 THIEN THIEN MILEAGE 2 FAYETTE FAYETTE PER URB[facility] URBAN STATUTE COGOVT COGOVT MILE RADIOLOGI 16558 [place] AND C 2 MEDICAL EXAMINATI SERV ON PELVIS FOUNDATIO 1/[address] [place] [address] [place] AND HEAD/BRAI 2 MEDICAL N W/[place] [address] [place] AND CERVICAL 2 MEDICAL SPINE W/O SERV CONTRAST FOUNDATIO MATERIAL N BASIC 48689 [facility] METABOLIC 1 CLINIC CLINIC PANEL LABORAT[place] [address] [facility] PROSTATE 1 CLINIC CLINIC SPECIFIC LABORATO LABORATO ANTIGEN TOTAL CT THORAX 32778 [facility] W/O 1 N N CONTRAST COMMUNITY COMMUNITY MATERIAL HOSPITA HOSPITA RADIOLOGI 98012 [facility] C EXAM 0 HERMAN CHEST 2 URGENT VIEWS TREAT FRONTAL&L ATERAL DOP 02113 [facility] ECHOCARD 0 [facility]MAN COLOR CLINIC FLOW PSC VELOCITY MAPPING DOPPLER 78912 [facility] ECHOCARD 0 [facility] PULSE CLINIC WAVE PSC W/SPECTRA L DISPLAY ECHO 26573 [facility] TTHRC R-T 0 HERMAN 2D W/WO CLINIC M-MODE PSC REST&STRS CONT ECG HEMOGLOBI 01442 [facility] N 0 CLINIC CLINIC GLYCOSYLA LABORATO LABORATO RIDDHI A1C GLUCOSE 95108 [facility] QUANTITAT 0 CLINIC CLINIC [place] BLOOD LABORATO LABORATO XCPT REAGENT STRIP TRANSFERA 46970 [facility] SE 0 CLINIC CLINIC ALANINE LABORATO LABORATO AMINO ALT SGPT COMPREHEN 13784 [facility] SIVE 0 CLINIC CLINIC METABOLIC LABORATOR LABORATOR PANEL Y Y CYANOCOBA 99345 [facility] GABE 0 CLINIC CLINIC VITAMIN LABORATOR LABORATOR B-[address] [place] [address] [facility] THYROID 0 CLINIC CLINIC STIMULATI LABORATOR LABORATOR NG Y Y HORMONE TSH BLOOD 82287 [facility] COUNT 0 CLINIC CLINIC COMPLETE LABORATOR LABORATOR AUTOMATED Y Y RADIOLOGI 57947 [place] EST, C EXAM 0 HERMAN JAVI CHEST 2 URGENT VIEWS TREATMENT FRONTAL&L ASSOC ATERAL COMPREHEN 68412 [facility] OF SIVE 0 [facility] METABOLIC PANEL CT THORAX 275[address] [facility] [place] CAYETANO, 0 RADIOLOGY SHARON G W/CONTRAS T MATERIAL RADIOLOGI 56677 [place] ESTUS, C EXAM 0 HERMAN JAVI CHEST 2 URGENT VIEWS TREATMENT FRONTAL&L ASSOC ATERAL Encounters Encounter Start End Date Code Location Performer Type Date OFFICE 65440 [facility] 7 7 ORTHOPEDI T VISIT C 15 ASSOCIAT MINUTES OFFICE 34765 [facility] [place] OUTPATIEN 7 7 HEALTH T VISIT MEDICAL 25 GROUP [facility] LENI - 6 6 [facility] OUTPATIEN [facility] CHEONDOISM - 6 6 HEALTH OUTPATIEN [facility] - 6 [facility] - 6 6 [facility] OUTPATIEN [facility] OFFICE 58144 AMISHA KAREN MIX OUTPATIEN 6 6 MD KAUR, T VISIT PSC 25 MINUTES HOSPITAL LENI - 6 6 [facility] OUTPATIEN [facility] HOSPITAL LENI [facility] 6 6 [facility] OUTPATIEN [facility] OFFICE 67013 [facility]ATH[facility] NANCY OUTPATIEN 6 6 GROUND T VISIT FAMILY 15 CLINI MINUTES HOSPITAL LENI - 6 6 [facility] OUTPATIEN [facility] L[facility]I - 5 5 [facility] OUTPATIEN [facility] LENI - 5 5 [facility] OUTPATIEN [facility] OFFICE 58473 AMISHA KAREN MIX OUTPATIEN 5 5 MD KAUR, T [facility] 45 PSC MINUTES OFFICE 50672 LENI OUTPATIEN 5 5 [facility] T VISIT [facility] 10 MINUTES OFFICE 72869 [facility] NANCY OUTPATIEN 5 5 GROUND T VISIT FAMILY 15 CLINI MINUTES [facility] OUTPATIEN COMMUNTIY HOSPITA OFFICE 66378 [facility] NANCY OUTPATIEN 5 5 GROUND T VISIT FAMILY 15 CLINI MINUTES OFFICE 74540 [facility] NANCY OUTPATIEN 5 5 GROUND T VISIT FAMILY 15 CLINI MINUTES OFFICE 28823 [facility] NANCY OUTPATIEN 5 5 GROUND T VISIT FAMILY 15 CLINI MINUTES OFFICE 58223 [facility] NANCY OUTPATIEN 5 5 GROUND T VISIT FAMILY 25 CLINI MINUTES OFFICE 51127 SPRUIELL SPRUIELL OUTPATIEN 4 4 LAW LAW T NEW 30 MINUTES OFFICE 13024 [facility] [place]AC[place] OUTPATIEN 4 4 N URGENT ABD T VISIT CARE 15 MINUTES OFFICE 46545 [facility] [place] OUTPATIEN 4 4 N URGENT ABD T VISIT CARE 15 MINUTES OFFICE 48506 [facility] [place] OUTPATIEN 4 4 N URGENT ABD T VISIT CARE 15 MINUTES [facility] [place] - 4 4 REGIONAL OUTPATIEN MEDICAL T OFFICE 19831 [facility] [place] OUTPATIEN 4 4 N URGENT ABD T VISIT CARE 15 MINUTES OFFICE 25745 PHANI PHANI OUTPATIEN 3 3 KAITLYNN KAITLYNN T VISIT 15 MINUTES OFFICE 30166 PHANI PHANI OUTPATIEN 3 3 KAITLYNN KAITLYNN T VISIT 15 MINUTES OFFICE 04207 PHANI PHANI OUTPATIEN 3 3 KAITLYNN KAITLYNN T VISIT 15 MINUTES OFFICE 68470 PHANI PHANI OUTPATIEN 3 3 KAITLYNN KAITLYNN T VISIT 15 MINUTES HOSPITAL [facility] - 2 2 N OUTPATIEN COMMUNITY T HOSPITA OFFICE 14586 MYRA HAM MYRA HAM OUTPATIEN 2 2 T NEW 45 MINUTES EMERGENCY 31112 RASHI SHOOK 2 2 EMERGENCY ADT KENISHA [facility] SERVICES T VISIT HIGH/URGE NT SEVERITY OFFICE 95865 PHANI PHANI OUTPATIEN 2 2 KAITLYNN KAITLYNN T VISIT 15 MINUTES HOSPITAL [facility] - 2 2 N OUTPATIEN COMMUNITY T HOSPITA OFFICE 57041 SHAD SANCHEZ OUTPATIEN 2 2 T VISIT 15 MINUTES OFFICE 90876 SHAD SANCHEZ OUTPATIEN 2 2 T VISIT 15 MINUTES OFFICE 92160 JACQUE SANTILLAN OUTPATIEN 2 2 AUGUSTO AUGUSTO T VISIT 15 MINUTES EMERGENCY 15847 [facility] 2 2 N DEPARTMEN COMMUNITY T VISIT HOSPITA HIGH/URGE NT SEVERITY [facility]PITAL [facility] - 2 2 N OUTPATIEN COMMUNITY T HOSPITA EMERGENCY 77224 CELLAROSI CELLAROSI DEPT 2 2 - YORBA - YORBA VISIT PAT PAT HIGH SEVERITY& THREAT FUNCJ EMERGENCY 10282 [facility] W DEPT 2 2 JEFF VISIT EMERGENCY HIGH PHYSI SEVERITY& THREAT FUNCJ OFFICE 90370 JACQUE SANTILLAN OUTPATIEN 2 2 AUGUSTO AUGUSTO T VISIT 15 MINUTES OFFICE 17714 JACQUE SANTILLAN OUTPATIEN 2 2 AUGUSTO AUGUSTO T VISIT 15 MINUTES OFFICE 37802 JACQUE SANTILLAN OUTPATIEN 2 2 AUGUSTO AUGUSTO T VISIT 15 MINUTES OFFICE 04112 JACQUE SANTILLAN OUTPATIEN 1 1 AUGUSTO AUGUSTO T VISIT 15 MINUTES HOSPITAL [facility] - 1 1 MICK OUTPATIEN REHAB T HOSP OFFICE 81146 CARDINAL OUTPATIEN 1 1 HILL T VISIT REHAB 10 HOSP MINUTES OFFICE 04828 JACQUE SANTILLAN OUTPATIEN 1 1 AUGUSTO AUGUSTO T NEW 45 MINUTES OFFICE 07452 [facility] RUBI OUTPATIEN 1 1 N URGENT ABD T NEW 30 CARE MINUTES OFFICE 92462 [facility] HERNANDEZ OUTPATIEN 1 1 ELVIA LIZZY T VISIT CLINIC 10 PSC MINUTES OFFICE 55482 SHANNA VALENCIA OUTPATIEN 1 1 AME BURT VISIT [facility] 15 . MINUTES OFFICE 91530 ADELAIDE HERNANDEZ OUTPATIEN 1 1 ELVIA LIZZY T VISIT CLINIC 15 PSC MINUTES OFFICE 14474 ADE[facility]IDE HERNANDEZ OUTPATIEN 1 1 [facility] LIZZY T VISIT CLINIC 15 PSC MINUTES OFFICE 88622 SHANNA CAMEJO OUTPATIEN 1 1 Daryl BURT VISIT [facility] 15 . [facility] 98506 [facility] OUTPATIEN 0 0 ELVIA Brito VISIT URGENT 25 TREAT MINUTES OFFICE 59540 ADELAIDE KULKARNI OUTPATIEN 0 0 ELVIA IRWIN T VISIT CLINIC 10 PSC MINUTES OFFICE 99020 OTERO ANTWON CAMEJO OUTPATIEN 0 0 Daryl BURT NEW 45 M.D[facility]S.[facility] MINUTES . OFFICE 34005 ADELAIDE HERNANDEZ OUTPATIEN 0 0 ELVIA Brito NEW 20 CLINIC MINUTES PSC OFFICE 81084 [facility] OUTPATIEN 0 0 ELVIA Brito VISIT URGENT 25 TREATMENT MINUTES ASSOC OFFICE 42691 OR MARILYNN PARKINSON OUTPATIEN 0 0 MEDICAL T NEW 45 SERV MINUTES FOUNDATIO OFFICE 76474 SURGICAL FLASH, OUTPATIEN 0 0 ASSOCIATI JON P T NEW 45 ON MINUTES HOSPITAL [facility] - 0 0 N [facility] OFF[facility] 71072 [facility] OUTPATIEN 0 0 ELVIA Brito NEW 45 URGENT MINUTES TREATMENT ASSOC
--- OUTSIDE RECORDS SUMMARY | 2016-05-22 17:46 | External Medical Summary Rpt ---
Author Author , Organization [employer] Address Unknown Phone Unavailable Care Team Providers Care Property Field Adjuster Name Role Phone [facility], Unavailable Unavailable [facility] Unavailable Unavailable LABORATORI, [facility] AMISHA DIETRICH MD, PSC, Unavailable Unavailable AMISHA DIETRICH MD, PSC AYOOB AND, AYOOB AND Unavailable Unavailable SHANNA BURT, Unavailable Unavailable M.Bill.P.S.CAyush, SHANNA BURT M.D.P.S.CAyush [facility] Unavailable Unavailable [facility] Unavailable Unavailable [facility], [facility] MARILYN SANDERS Unavailable Unavailable MARILYN SHERMAN, MARILYN Unavailable Unavailable LANE BUX ANJ, BUX ANJ Unavailable Unavailable [facility] CELLAROSI - YORBA Unavailable Unavailable PAT, CELLAROSI - YORBA PAT ANTWON BASHIR, ANTWON BASHIR Unavailable Unavailable [facility], Unavailable Unavailable [facility] Unavailable Unavailable SPECIALIST, [facility] SPECIALIST [facility] # [id number], Unavailable Unavailable [facility] # [id number] [facility] [place]available [place], [facility] [place] ESTUS LINDA, ESTUS LINDA Unavailable Unavailable ESTUS, JAVI, ESTUS, Unavailable Unavailable JAVI FINYVES ELL, FINCHUM Unavailable Unavailable ELL [facility] Unavailable Unavailable HOSPITA, [facility] Un[facility], [facility] CAEYTANOABBIE JERONIMOA G, Unavailable Unavailable CAYETANOABBIE JERONIMOA G FLASH, JON P, Unavailable Unavailable FLASH, JON P ANDREA BAR, ANDREA BAR Unavailable Unavailable [facility], [facility], Unavailable Unavailable [facility] CUONG DE LA O, [facility] LA [facility] Unavailable Unavailable [facility] Unavailable Unavailable ASSOCIAT, [facility] Unavailable Unavailable [...] [facility], Unavailable Unavailable [facility] KAREN CRI, KAREN CRI Unavailable Unavailable SHAD LAURA, SHAD LAURA Unavailable Unavailable SHAD LAURA, SHAD LAURA Unavailable Unavailable [facility] FAYETTE [facility] Unavailable Unavailable COGOVT, [facility] COGOVT [facility] Unavailable Unavailable COGOVT, [facility] COGOVT [facility] Unavailable Unavailable LABORATO, [facility] Unavailable Un[facility] Unavailable [facility]available LABORATORY, [facility] Unavailable Unavailable PHARMACY, [facility] LINGREEN DENNIS, Unavailable Unavailable LINGREEN DENNIS MYRA HAM, MYRA HAM Unavailable Unavailable MYRA HAM, MYRA HAM Unavailable Unavailable [facility] Unavailable Unavailable SERVICES, [facility] MITTLESTEADT KENISHA, Unavailable Unavailable [facility]AD[facility] KENISHA MORRIN, MORRIN Unavailable Unavailable [facility] Unavailable Unavailable [facility], [facility], Unavailable Unavailable [facility], Unavailable Unavailable [facility] Unavailable Unavailable INCORPORAT, [facility] RABIEE ABD, RABIEE Unavailable Unavailable [facility] Unavailable Unavailable [facility] [place], [facility] Unavailable Unavailable [id number] # [id number], [facility] [id number] # [phone] ANTONIO JUSTUS, ANTONIO JUSTUS Unavailable [...] WADDLES RYA, WADDLES Unavailable Unavailable R[id number] # Unavailable Unavailable [id number], [id number] # [id number] [facility] # Unavailable Unavailable 4892, [facility] #4892 # [phone] DAVID HERCULES Unavailable Unavailable JEREMY STEWART, Unavailable Unavailable JEREMY HERNANDEZ SEMAJ W, SEMAJ W Unavailable Unavailable JEN MAT, JEN MAT Unavailable Unavailable Purpose Continuity of Care Document - 03-09-2009 through 2016 Problems Code Diagnosis DOS Provider Status R76.8 OTHER 05-07-2016 SPECIFIED ABNORMAL IMMUNOLOGIC AL FINDINGS IN SERUM M170 BILATERAL 04-04-2016 [facility] OSTEOARTHRI ASSOCIAT TIS OF KNEE S93413 PAIN IN 04-04-2016 [facility]TH[facility]IC ASSOCIAT A19338 PAIN IN 04-04-2016 [facility] ASSOCIAT E119 TYPE 2 04-02-2016 [facility] DIABETES [facility] MELLITUS MEDICAL WITHOUT GROUP COMPLICATIO NS G8929 OTHER 04-02-2016 [facility]RONIC [facility] PAIN MEDICAL GROUP I10 ESSENTIAL 04-02-2016 [facility] PRIMARY [facility] HYPERTENSIO MEDICAL N GROUP J431 PANLOBULAR 04-02-2016 [facility] EMPHYSEMA [facility]ALTH MEDICAL GROUP K219 GASTRO-ESOP 04-02-2016 [facility] H REFLUX HEALTH DISEASE MEDICAL WITHOUT GROUP ESOPHAGITIS M545 LOW BACK 04-02-2016 [facility] PAIN HEALTH MEDICAL GROUP 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-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 O68085 CORRECTION 02-06-2016 [facility] CURRENT USE [facility]OS[facility] OF OPIATE INC ANALGESIC N40011 EFFUSION 12-02-2015 [facility] RIGHT KNEE [facility] M5116 INTERVERTEB 10-10-2015 [facility] RAL DISC [facility] D/O INC W/RADICULOP ATHY LUMB RGN N77318 OTHER LONG 10-10-2015 [facility] TERM [facility] CURRENT INC DRUG THERAPY A95501 SPONDYLOSIS 04-29-2015 [facility] W/O MEM HOS[facility] MYELOPATH/R INC ADICULOPATH Y LUMB RGN M069 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, ARTHRITIS , PSC UNSPECIFIED J77662 SPONDYLOSIS 03-18-2015 [facility] W/O MEM [facility]OS[facility] MYELOPATH/R INC ADICULPATHY LS RGN E785 HYPERLIPIDE 03-08-2015 [facility] EFRAIN GROUND UNSPECIFIED FAMILY CLINI M549 DORSALGIA 03-04-2015 [facility] UNSPECIFIED MEM HOSP INC M5030 OTH 02-14-2015 [facility] CERVICAL [facility] DISC INC DEGENERATIO N UNS CERV REGION G894 CHRONIC 12-06-2014 [facility] PAIN GROUND SYNDROME FAMILY CLINI 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 UNS CLINI 22622 DIAB W/O 11-05-2014 [facility] COMP TYPE [facility] II/UNS NOT HOLDINGS STATED UNCNTRL 35684 DIAB 11-05-2014 [facility] W/NEURO [facility] MANIFESTS HOLDINGS TYPE II/UNS NOT UNCNTRL 4019 UNSPECIFIED 11-05-2014 [facility] ESSENTIAL [facility] HYPERTENSIO HOLDINGS N 63415 UNSPECIFIED 11-05-2014 [facility] ARTHROPATHY HOLDINGS SITE UNSPECIFIED 95858 SHORTNESS 10-15-2014 [facility] [place] OF BREATH RADIOLOGY 7932 NONSPC ABN 10-15-2014 [place] FINDNG COMMUNTIY RAD&OTH HOSPITA EXAM OTH INTRTHOR ORGN 07736 UNSPECIFIED 10-06-2014 [facility] SLEEP GROUND DISTURBANCE FAMILY CLINI 7823 EDEMA 07-08-2014 [facility] GROUND FAMILY CLINI 98978 ESOPHAGEAL 06-21-2014 [facility] REFLUX GROUND FAMILY CLINI 3670 HYPERMETROP 12-07-2013 [place] 4011 ESSENTIAL 09-25-2013 [facility] N, BENIGN 09260 IMPOTENCE 09-25-2013 [place] OF [facility]GANIC URGENT CARE ORIGIN 11107 OTHER 09-25-2013 [facility] FATIGUE 7213 LUMBOSACRAL 08-06-2013 [facility] H PAIN SPONDYLOSIS SPECIALIST WITHOUT MYELOPATHY 51141 DEGEN 08-06-2013 [facility] LUMBAR/LUMB H PAIN OSACRAL SPECIALIST INTERVERTEB RAL DISC 87943 SPINAL STEN 08-06-2013 [facility] LUMB REG H PAIN W/O SPECIALIST NEUROGENIC CLAUDICATIO N 7244 THORACIC/CLARY 08-06-2013 [facility] MBOSACRAL H PAIN NEURITIS/RA SPECIALIST DICULITIS UNSPEC 23617 DISPLCMT 05-26-2013 [facility] INTERVERT OF [place] DISC W/O MYELOPATHY 7248 OTHER 05-26-2013 [facility] SYMPTOMS [facility] REFERABLE OF [place] TO BACK 7384 ACQUIRED 05-26-2013 [facility] SPONDYLOLIS [facility] THESIS OF [place] 75708 DIAB W/O 04-14-2013 [facility] COMP TYPE II/UNS TYPE UNCNTRL V700 ROUTINE 04-14-2013 [facility] MEDICAL EXAM@HEALTH CARE FACL 94825 OTHER 12-08-2012 PHANI KAITLYNN CHRONIC PAIN 496 CHRONIC 12-08-[address] [facility] [address]NN AIRWAY OBSTRUCTION NEC 7242 LUMBAGO 12-08-2012 [facility] KAITLYNN 27403 OBESITY, 07-30-2012 LAB [facility] OF UNSPECIFIED [facility] 16912 CRAMP OF 01-04-2012 [place] LIMB [facility] 7140 RHEUMATOID 2012 MYRA HAM ARTHRITIS 93911 PRIMARY 2012 MYRA HAM LOCALIZED OSTEOARTHRO SIS LOWER LEG 14051 PAIN IN 12-19-2011 PHANI KAITLYNN JOINT PELVIC REGION AND THIGH 83381 PAIN IN 12-19-2011 [place] JOINT, [facility] LOWER [facility]G [facility] 7245 UNSPECIFIED 12-19-2011 [facility] 12436 OTHER 12-19-2011 [facility] [place] NONSPECIFIC RADIOLOGY ABNORMAL FINDING OF LUNG FIELD 5369 UNSPECIFIED 09-10-2011 SHAD SANCHEZ FUNCTIONAL DISORDER OF STOMACH 7226 DEGENERATIO 09-10-2011 SHAD SANCHEZ N INTERVERTEB RAL DISC SITE UNSPEC 10454 DIARRHEA 09-10-2011 SHAD SANCHEZ 82112 MORBID 06-27-2011 SHAD SANCHEZ OBESITY V5869 LONG-TERM 06-25-2011 JACQUE CASAS (CURRENT) USE OF OTHER MEDICATIONS 15140 [facility] ULCR 06-17-2011 [facility] ACUT/CHRN HOSPITA W/O HEMOR PERF/OBST 65157 FEVER 06-17-2011 [place] UNSPECIFIED [facility] 12601 ABDOMINAL 06-17-2011 [facility] [place] PAIN RIGHT RADIOLOGY UPPER QUADRANT 76361 ABDOMINAL 06-17-2011 [place] PAIN, [facility]STR[facility] 27170 NAUSEA WITH 06-11-2011 [facility] PHYSI 28297 ABDOMINAL 06-11-2011 THIEN FAYETTE PAIN, URBAN UNSPECIFIED COGOVT SITE 23944 OSTEOARTHRO 05-25-2011 JACQUE CASAS S UNSPEC WHETHER GEN/LOC UNSPEC SITE 7234 BRACHIAL 05-25-2011 JACQUE CASAS NEURITIS OR RADICULITIS NOS 7099 UNSPECIFIED 03-26-2011 JACQUE CASAS DISORDER OF SKIN&SUBCUT ANEOUS TISSUE 22113 PAIN IN 03-26-2011 JACQUE CASAS JOINT, SHOULDER REGION 7291 UNSPECIFIED 03-26-2011 JACQUE CASAS MYALGIA AND MYOSITIS 7224 DEGENERATIO 03-24-2011 [facility] OF SERV CERVICAL FOUNDATION INTERVERTEB RAL DISC 89611 INJR OTH 03-24-2011 [place] [facility] SPEC SERV INTRATHR FOUNDATIO ORGN W/O OPN WND CAV OTH 920 CONTUSION 03-24-2011 [place] [facility] OF FACE SERV SCALP AND FOUNDATION NECK EXCEPT EYE 98834 INJURY OF 03-24-2011 [facility] FACE AND SERV NECK OTHER FOUNDATION AND UNSPECIFIED 9596 INJURY 03-24-2011 [place] [facility] OTHER AND SERV UNSPECIFIED FOUNDATIO HIP AND THIGH 9598 INJURY 03-24-2011 THIEN FAYETTE OTH&UNSPEC URBAN OTH SPEC COGOVT SITES INCL MULTIPLE E8889 UNSPECIFIED 03-24-2011 [facility] F[facility] SERV FOUNDATION 7243 SCIATICA 02-13-2011 JACQUE CASAS 7292 UNSPECIFIED 02-13-2011 JACQUE CASAS NEURALGIA NEURITIS AND RADICULITIS V5883 ENCOUNTER 02-13-2011 [facility] DRUG MONITORING 24872 UNSPECIFIED 08-10-2010 [place] [facility] INSUFF[facility]EN [facility]IN[facility] CY 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 7202 SACROILIITI 04-12-2010 [facility] S NOT BURT, ELSEWHERE [facility].D.P.S.C[facility] CLASSIFIED 7862 COUGH 03-08-2010 [facility] HOSPITA 7931 NONSPEC 03-08-2010 [facility] [place] [facility] RAD RADIOLOGY OTH EXAM BODY STRUCT LUNG FIELD 45291 CHEST PAIN 11-22-2009 NEW UNSPECIFIED [facility] PSC 3569 UNSPEC 09-02-2009 [facility] HEREDIT&IDI CLINIC OPATHI LABORATORY PERIPHERAL NEUROPATHY 7866 SWELLING, 09-02-2009 [place] [facility] LUMP IN CLINIC [facility] CHEST 13277 OTHER 04-18-2009 [place] [facility] DISEASES OF SERV LUNG NOT FOUNDATIO ELSEWHERE CLASSIFIED 2357 NEOPLASM 04-01-2009 [facility] BEHAVIOR TRACH BRONCHUS&CLARY NG 7856 ENLARGEMENT 03-25-2009 [facility] [place] OF LYMPH RADIOLOGY NODES 7910 PROTEINURIA 03-09-2009 [facility] Allergies, Adverse Reactions, [...] 1- 8- 00 NG 52 MA ve HI 29 20 20 TO N DE 72 [...] 1- 1- 00 NG 52 MA ve HI 29 20 20 TO N DE 72 [...] 1- 1- 00 NG 52 MA ve HI 29 20 20 TO N DE 72 [...] 3- 1- 00 NG 26 S ve HI 20 20 20 TO HI DE 80 10 11 N CH 1 [...] 3- 3- 00 NG 26 S ve HI 20 20 20 TO HI DE 80 10 11 N CH 1 [...] 3- 3- 00 NG 26 S ve HI 20 20 20 TO HI DE 80 10 10 N CH 1 [...] 9- 9- 00 PH 91 Y ve HI 20 20 20 AR JA DE 81 10 10 MA NA 0 CY S 20 # MG 02 33 TA 2 BL ET LI 68 01 01 00 30 30 HO 60 WE Ac SI 18 -0 -[address] ti NO 00 6- 4- 00 TO 38 ve VT 51 20 20 WN 0 HE IL 80 10 10 NR -H [address] AR M Z MA 10 CY -1 2. 5 MG TA B Procedures Procedure DOS Code Location Performer Comment INJECTION J1030 [facility] 7 ORTHOPEDI ORTHOPEDI METHYLPRE C C DNISOLONE ASSOCIAT ASSOCIAT ACETATE 40 MG RADIOLOGI 99397 [facility] EXAM 7 ORTHOPEDI KNEE C COMPLETE ASSOCIAT 4/MORE VIEWS ARTHROCEN 46437 [facility] ORTHOPEDI ASPIR&/IN C J MAJOR ASSOCIAT JT/[facility] W/[facility] G0463 [facility] OUTPATIEN 6 [facility] T CLIN INC INC VISIT ASSESS & MGMT PT DRUG TST G0477 [facility] PRESUMP;C 6 MEM HOSP MEM HOSP PBL BEING INC INC READ DC OPT OBV ONLY INJECTION J1030 [facility] [address] METHYLPRE C DNISOLONE ASSOCIAT ACETATE 40 MG ARTHROCEN 10088 [facility] TESIS 6 ORTHOPEDI ORTHOPEDI ASPIR&/IN C C J MAJOR ASSOCIAT ASSOCIAT JT/BURSA W/O RADIOLOGI 78635 [facility] C 6 HEALTH HEALTH EXAMINATI [facility] ON KNEE 3 VIEWS DRUG [...] INC VISIT ASSESS & MGMT [place] NJX 99015 [facility] DX/THER 6 MEM HOSP MEM HOSP AGT PVRT INC INC FACET JT LMBR/SAC 1 LEVEL NJX 42683 AMISHA BUX ANJ DX/THER 6 MD KAUR, AGT PVRT PSC FACET JT LMBR/SAC 2ND LEVEL NJX 62789 AMISHA BUX ANJ DX/THER 6 MD KAUR, AGT PVRT PSC FACET JT LMBR/SAC 3+ LEVEL DRUG TST G0477 [facility] PRESUMP;C 6 MEM HOSP MEM HOSP PBL BEING INC INC READ DC OPT OBV ONLY NJX 35883 AMISHA KAREN CRI DX/THER 6 MD KAUR, AGT PVRT PSC FACET JT LMBR/SAC 3+ LEVEL NJX 92843 AMISHA KAREN CRI DX/THER 6 MD KAUR, AGT PVRT PSC FACET JT LMBR/SAC 2ND LEVEL NJX 22195 AMISHA KAREN CRI DX/THER 6 MD KAUR, AGT PVRT PSC FACET JT LMBR/SAC 1 LEVEL THERAPEUT 68038 [facility] IC PX 1/> 6 MEM HOS[facility]OS[facility] AREAS INC INC EACH 15 MIN EXERCISES APPL 34718 [facility] MODALITY 5 MEM H[facility] MEM HOSP 1/> AREAS INC INC ULTRASOUN D EA 15 MIN APPL 29497 [facility] MODALITY 5 MEM HOS[facility] MEM HOSP 1/> AREAS INC INC ELEC STIMJ UNATTENDE D THERAPEUT 09469 [facility] IC PX 1/> 5 MEM HOS[facility] MEM HOSP AREAS INC INC EACH 15 MIN EXERCISES THERAPEUT 00254 [facility] IC PX 1/> 5 MEM HOSP MEM HOSP AREAS INC INC EACH 15 MIN EXERCISES APPL 80309 [facility] MODALITY 5 MEM HOSP MEM HOSP 1/> AREAS INC INC ELEC STIMJ UNATTENDE D APPL 59062 [facility] MODALITY 5 MEM H[facility] MEM HOSP 1/> AREAS INC INC ULTRASOUN D EA 15 MIN APPL 64695 [facility] MODALITY 5 MEM HOSP MEM HOSP 1/> AREAS INC INC ULTRASOUN D EA 15 MIN APPL 58056 [facility] MODALITY 5 MEM HOSP MEM HOSP 1/> AREAS INC INC ELEC STIMJ UNATTENDE D APPL 87423 [facility] MODALITY 5 MEM HOSP MEM HOSP 1/> AREAS INC INC ELEC STIMJ UNATTENDE D APPL 65543 [facility] MODALITY 5 MEM HOSP MEM HOSP 1/> AREAS INC INC ULTRASOUN D EA 15 MIN PHYSICAL 15225 [facility] THERAPY 5 MEM HOSP MEM HOSP EVALUATIO INC INC N ALBUMIN 62810 LAB [facility] LAB LUC[facility] URINE 5 MANUELA MANUELA MICROALBU HOLDINGS HOLDINGS MIN QUANTIATI VE SEDIMENTA 93675 LAB [facility] TION RATE 5 MANUELA MANUELA RBC [place] [address] LAB L[facility] LAB [facility] BLOOD/URI 5 [facility] ACID HOLDINGS HOLDINGS COMPREHEN 07772 LAB L[facility] LAB LUC[facility] SIVE 5 [facility] METABOLIC HOLDINGS HOLDINGS PANEL RHEUMATOI 25525 [facility] LAB LUC[facility] D FACTOR 5 MANUELA MANUELA QUANTITAT HOLDINGS HOLDINGS TOMEKA HEMOGLOBI 86248 LAB L[facility] LAB LUCILA N 5 MANUELA MANUELA GLYCOSYLA HOLDINGS HOLDINGS RIDDHI A1C RADIOLOGI 40431 [facility] EXAM 5 N N CHEST 2 COMMUNTIY COMMUNTIY VIEWS HOSPITA HOSPITA FRONTAL&L ATERAL LIPID 06270 LAB [facility] PANEL 5 MANUELA MANUELA HOLDINGS HOLDINGS HEMOGLOBI 70260 [facility] LAB LUCIL[facility] N 5 [facility] GLYCOSYLA HOLDINGS HOLDINGS RIDDHI A1C GENERAL 00524 [facility] L[facility] LAB LUC[facility]A HEALTH 5 MANUELA MANUELA PANEL HOLDINGS HOLDINGS COLLECTIO 81437 [facility] CRUZ N VENOUS 5 GROUND BLOOD FAMILY VENIPUNCT CLINI URE URNLS DIP 98934 [facility] CRUZ 5 GROUND STICK/TAB FAMILY LET RGNT CLINI NON-AUTO W/O MICRSCP BLOOD 51333 [facility] COUNT 4 DIAGNOSTI DIAGNOSTI COMPLETE CS CS AUTO&AUTO INCORPORA DIFRNTL T WBC LIPID 76238 [facility] PANEL 4 DIAGNOSTI DIAGNOSTI CS CS INCORPORA T COMPREHEN 48960 [facility] SIVE 4 DIAGNOSTI DIAGNOSTI METABOLIC [place] [address] [facility] THYROID 4 DIAGNOSTI DIAGNOSTI STIMULATI CS [place] [address] [facility] PROSTATE 4 DIAGNOSTI DIAGNOSTI SPECIFIC CS CS ANTIGEN INCORPORA TOTAL T INJECTION J1040 [facility] 4 LTH PAIN LTH PAIN METHYLPRE SPECIALIS SPECIALIS DNISOLONE T T ACETATE 80 MG FLUORO 67667 [facility] LINGREEN NEEDLE/CA 4 LTH PAIN DENNIS TH SPECIALIS SPINE/PAR T ASPINAL DX/[place] NJX 24115 [facility] L[facility] DX/THER 4 LTH PAIN DENNIS SBST SPECIALIS EPIDURAL/ T SUBARACH LUMBAR/SA CRAL LOCM Q9967 [facility] 300-399 4 LTH PAIN DENNIS MG/ML SPECIALIS IODINE T CONCENTRA TION PER ML MRI 21619 [facility] ANTONIO JUSTUS SPINAL 4 CANAL ASSOCIATE LUMBAR S OF [place] W/O CONTRAST MATERIAL HEMOGLOBI 06567 [facility] N 4 DIAGNOSTI DIAGNOSTI GLYCOSYLA CS CS [place]IDDH[place] [address] [facility] LAB [facility] PROSTATE 3 OF AMERIC SPECIFIC MANUELA [place] [address] LAB L[facility] LAB L[facility] PROSTATE 3 OF AMERIC SPECIFIC MANUELA [place] [address] LAB L[facility] LAB L[facility] THYROID 3 OF AMERIC STIMULATI MANUELA HOLDING NG HOLDINGS HORMONE TSH COMPREHEN 17940 LAB [facility] LAB LUCILA SIVE 3 OF AMERIC METABOLIC MANUELA HOLDING PANEL HOLDINGS BLOOD 94673 [facility] COUNT 3 [facility] COMPLETE AUTO&AUTO DIFRNTL WBC HEMOGLOBI 69824 [facility] LAB LUCILA N 3 OF AMERIC GLYCOSYLA MANUELA HOLDING RIDDHI A1C HOLDINGS POTASSIUM 47943 [facility] SERUM 2 N N PLASMA/WH [facility] OLE BLOOD HOSPITA HOSPITA COLLECTIO 20795 [facility] N VENOUS [address] [facility] VENIPUNCT HOSPITA HOSPITA URE DRUG SCR G0434 [facility] NOT 2 CHROMATOG RAPHIC; ANY NUMBER PT ENC RADEX 82613 [facility] SPINE [address] [facility] AL 2/3 HOSPITA HOSPITA VIEWS COMPREHEN 03441 [facility] SIVE [address] [facility] PANEL HOSPITA HOSPITA COLLECTIO 28744 [facility] N VENOUS [address] [facility] VENIPUNCT HOSPITA HOSPITA URE ECG 29325 [facility] ROUTINE [address] [facility] W/LEAST HOSPITA HOSPITA 12 LDS TRCG ONLY W/O I&R RADEX HIP 69387 [facility] [address] [facility] L HOSPITA HOSPITA COMPLETE MINIMUM 2 VIEWS RADEX 87847 [facility] [place] JEN MAT HIPS 2 RADIOLOGY BILATERAL 2 VIEWS ANTEROPOS T PELVIS RADIOLOGI 52434 [facility] C EXAM 2 N N CHEST [address] [facility] VIEWS HOSPITA HOSPITA FRONTAL&L ATERAL BLOOD 89538 [facility] COUNT [address] [facility] AUTO&AUTO HOSPITA [place] [address] [facility]ZECH SHIGA-LIK 2 ESOTERIC ESOTERIC E TOXIN LABORATOR LABORATOR I I CUL BACT 95046 [facility] STOOL 2 ESOTERIC ESOTERIC AEROBIC LABORATOR LABORATOR ADDL I I PATHOGENS &ID EA CUL BACT 39894 [facility] STOOL 2 ESOTERIC ESOTERIC AEROBIC LABORATOR LABORATOR ISOL I I SALMONELL A&SHIGELL OVA&MISTY 97670 [facility] ITES 2 ESOTERIC ESOTERIC DIRECT LABORATOR LABORATOR SMEARS I I CONCENTRA TION & ID THER 89011 [facility] PROPH/DX [address] [facility] PUSH HOSPITA HOSPITA SINGLE/1S T SBST/[place] [address] [facility] LIPASE [address] [facility] HOSPITA HOSPITA INJECTION J2405 [facility] [address] [facility] ON HCL HOSPITA HOSPITA PER 1 MG LOCM Q9967 [facility] 300-399 2 N N MG/ML [facility] IODINE HOSPITA HOSP[place] [address] [facility] AMYLASE [address] [facility] HOSPITA HOSPITA COMPREHEN 79083 [facility] SIVE [address] [facility] [place] [address] [facility] INFUSION [address] [facility] EACH HOSPITA HOSPITA ADDITIONA L HOUR THER 91156 [facility] PROPH/DX [address] [facility] SEQL IV HOSPITA HOSPITA PUSH SBST/DRUG FAC INJECTION [id number] [facility] MORPHINE [address] [facility] UP TO 10 HOSPITA HOSPITA MG HI OSM [id number] [facility] CONTRST [address] [facility] [phone] HOSPITA HOSPITA MG/ML IODINE CONC ML THERAPEUT 16467 [facility] IC [address] [facility] IV PUSH [place] [address] [facility] ABDOMEN & [address] [facility] W/CONTRAS HOSPITA HOSPITA T MATERIAL URNLS DIP 12671 [facility] 2 N N STICK/TAB [facility] LET HOSPITA HOSPITA REAGENT AUTO MICROSCOP Y BLOOD 45440 [facility] COUNT [address] [facility] AUTO&AUTO [place]OSP[place] [address] [facility] [place] [facility] ABDOMINAL 2 RADIOLOGY REAL TIME [...] EMERGENCY COGOVT COGOVT TRANSPORT LEVEL 1 RADIOLOGI 41210 [place] [facility] AND C 2 MEDICAL EXAMINATI SERV ON CHEST FOUNDATIO SINGLE VIEW FRONTAL GROUND [id number] THIEN THIEN MILEAGE 2 FAYETTE FAYETTE PER URBAN URBAN STATUTE COGOVT COGOVT MILE RADIOLOGI 97346 [place] [facility] AND C 2 MEDICAL EXAMINATI SERV ON PELVIS FOUNDATIO 1/[address] [place] [address] [place] [facility] AND HEAD/BRAI 2 MEDICAL N W/[place] [address] [place] [facility] AND CERVICAL 2 MEDICAL SPINE W/O SERV CONTRAST FOUNDATIO MATERIAL N BASIC 92867 [facility] METABOLIC 1 [facility] PANEL [facility] [address] [facility] PROSTATE 1 CLINIC CLINIC SPECIFIC [facility]ORATO LABORATO ANTIGEN TOTAL CT THORAX 80470 [facility] W/O 1 N N CONTRAST COMMUNITY COMMUNITY MATERIAL HOSPITA HOSPITA RADIOLOGI 97492 [facility] LINDA C EXAM 0 [facility] CHEST 2 URGENT VIEWS TREAT FRONTAL&L ATERAL DOP 38929 [facility] ECHOCARD 0 [facility] COLOR CLINIC FLOW PSC VELOCITY MAPPING DOPPLER 71560 [facility] ECHOCARD 0 [facility] PULSE CLINIC WAVE PSC W/SPECTRA L DISPLAY ECHO 68047 [facility] TTHRC R-T 0 [facility] 2D W/WO CLINIC M-MODE PSC REST&STRS CONT ECG HEMOGLOBI 53504 [facility] N 0 CLINIC CLINIC GLYCOSYLA [facility]OR[facility]O LABORATO RIDDHI A1C GLUCOSE 96623 [facility] QUANTITAT 0 [facility]INIC CLINIC [place] BLOOD [facility]O LABORATO XCPT REAGENT STRIP TRANSFERA 51423 [facility] SE 0 CLINIC CLINIC ALANINE [facility] AMINO ALT SGPT COMPREHEN 70171 [facility] SIVE 0 [facility]INIC CLIN[facility] METABOLIC LABORATOR LABORATOR PANEL Y Y CYANOCOBA 30177 [facility] GABE 0 CLINIC CLINIC VITAMIN LABORATOR LABORATOR B-[address] [place] [address] [facility] THYROID 0 CLINIC CLINIC STIMULATI LABORATOR LABORATOR NG Y Y HORMONE TSH BLOOD 30576 [facility] COUNT 0 CLINIC CLINIC COMPLETE LABORATOR LABORATOR AUTOMATED Y Y RADIOLOGI 85815 BRISTOL EST, C EXAM 0 [facility] JAVI CHEST 2 URGENT VIEWS TREATMENT FRONTAL&L ASSOC ATERAL COMPREHEN 92635 [facility] SIVE 0 [employer] [place] [facility] METABOLIC PANEL CT THORAX [address] [facility] [place] CAYET[place], 0 RADIOLOGY SHARON G W/CONTRAS T MATERIAL RADIOLOGI 77129 BRISTOL ESTUS, C EXAM 0 [facility] JAVI CHEST 2 URGENT VIEWS TREATMENT FRONTAL&L ASSOC ATERAL Encounters Encounter Start End Date Code Location Performer Type Date [id number] 7 ORTHOPEDI T VISIT C 15 ASSOCIAT MINUTES OFFICE 41690 [facility] [place] OUTPATIEN 7 7 HEALTH T VISIT MEDICAL 25 GROUP [facility] L[facility]I - 6 6 [facility] OUTPATIEN [facility] - 6 6 HEALTH OUTPATIEN [facility] - 6 6 [facility] - 6 6 [facility] 6 6 [facility] 6 6 [facility] OFFICE 15052 AMISHA KAREN MIX OUTPATIEN 6 6 MD KAUR, T VISIT PSC 25 MINUTES HOSPITAL LENI - 6 6 [facility] LENI [facility] 6 6 [facility]EN [facility] OFFICE 07261 [facility] NANCY OUTPATIEN 6 6 GROUND T VISIT FAMILY 15 CLINI MINUTES HOSPITAL L[facility] 6 6 [facility] LENI - 5 5 [facility] OUTPATIEN [facility]I - 5 5 [facility] OUTPATIEN [facility] OFFICE 88051 AMISHA KAREN MIX OUTPATIEN 5 5 MD KAUR, [facility] 45 PSC MINUTES OFFICE 70840 LENI OUTPATIEN 5 5 [facility] T VISIT [facility] 10 MINUTES OFFICE 82545 [facility] NANCY OUTPATIEN 5 5 GROUND T VISIT FAMILY 15 CLINI MINUTES [facility] N [facility] OFFICE 30081 [facility] NANCY OUTPATIEN 5 5 GROUND T VISIT FAMILY 15 CLINI MINUTES OFFICE 74777 [facility] NANCY OUTPATIEN 5 5 GROUND T VISIT FAMILY 15 CLINI MINUTES OFFICE 77026 [facility] NANCY OUTPATIEN 5 5 GROUND T VISIT FAMILY 15 CLINI MINUTES OFFICE 84252 [facility] NANCY OUTPATIEN 5 5 GROUND T VISIT FAMILY 25 CLINI MINUTES OFFICE 84729 SPRUIELL SPRUIELL OUTPATIEN 4 4 LAW LAW T NEW 30 MINUTES OFFICE 29566 [facility] OUTPATIEN 4 4 N URGENT ABD T VISIT CARE 15 MINUTES OFFICE 66746 [facility] OUTPATIEN 4 4 N URGENT ABD T VISIT CARE 15 MINUTES OFFICE 77088 [facility] OUTPATIEN 4 4 N URGENT ABD T VISIT CARE 15 MINUTES [facility] - 4 4 REGIONAL OUTPATIEN MEDICAL T OFFICE 48681 [facility] OUTPATIEN 4 4 N URGENT ABD T VISIT CARE 15 MINUTES OFFICE 09812 PHANI PHANI OUTPATIEN 3 3 KAITLYNN KAITLYNN T VISIT 15 MINUTES OFFICE 84602 PHANI PHANI OUTPATIEN 3 3 KAITLYNN KAITLYNN T VISIT 15 MINUTES OFFICE 51190 PHANI PHANI OUTPATIEN 3 3 KAITLYNN KAITLYNN T VISIT 15 MINUTES OFFICE 36858 PHANI PHANI OUTPATIEN 3 3 KAITLYNN KAITLYNN T VISIT 15 MINUTES HOSPITAL [facility] - 2 2 N OUTPATIEN COMMUNITY T HOSPITA OFFICE 55839 MYRA HAM MYRA HAM OUTPATIEN 2 2 T NEW 45 MINUTES EMERGENCY 03381 RASHI SHOOK [address] [facility] T VISIT HIGH/URGE NT SEVERITY OFFICE 54032 PHANI PHANI OUTPATIEN 2 2 KAITLYNN KAITLYNN T VISIT 15 MINUTES HOSPITAL [facility] - 2 2 N OUTPATIEN COMMUNITY T HOSPITA OFFICE 43979 SHAD SANCHEZ OUTPATIEN 2 2 T VISIT 15 MINUTES OFFICE 95082 SHAD SANCHEZ OUTPATIEN 2 2 T VISIT 15 MINUTES OFFICE 84363 JACQUE SANTILLAN OUTPATIEN 2 2 AUGUSTO AUGUSTO T VISIT 15 MINUTES EMERGENCY 28668 [facility] 2 2 N DEPARTMEN COMMUNITY T VISIT HOSPITA HIGH/URGE NT SEVERITY [facility]OSPITAL [facility] - 2 2 N OUTPATIEN COMMUNITY T HOSPITA EMERGENCY 09779 CELLAROSI CELLAROSI DEPT 2 2 - YORBA - YORBA VISIT PAT PAT HIGH SEVERITY& THREAT FUNCJ EMERGENCY 74141 [facility] SEMAJ W DEPT 2 2 JEFF VISIT EMERGENCY HIGH PHYSI SEVERITY& THREAT FUNCJ OFFICE 51870 JACQUE SANTILLAN OUTPATIEN 2 2 AUGUSTO AUGUSTO T VISIT 15 MINUTES OFFICE 81463 JACQUE SANTILLAN OUTPATIEN 2 2 AUGUSTO AUGUSTO T VISIT 15 MINUTES OFFICE 22662 JACQUE SANTILLAN OUTPATIEN 2 2 AUGUSTO AUGUSTO T VISIT 15 MINUTES OFFICE 03866 JACQUE SANTILLAN OUTPATIEN 1 1 AUGUSTO AUGUSTO T VISIT 15 MINUTES HOSPITAL [facility] - 1 1 MICK OUTPATIEN REHAB T HOSP OFFICE 10506 [facility] OUTPATIEN 1 1 HILL T VISIT REHAB 10 HOSP MINUTES OFFICE 82494 JACQUE SANTILLAN OUTPATIEN 1 1 AUGUSTO AUGUSTO T NEW 45 MINUTES OFFICE 40481 [facility] RUBI OUTPATIEN 1 1 N URGENT ABD T NEW 30 CARE MINUTES OFFICE 96575 ADELAIDE HERNANDEZ OUTPATIEN 1 1 [facility]VIA LIZZY T VISIT CLINIC 10 PSC MINUTES OFFICE 24231 SHANNA VALENCIA OUTPATIEN 1 1 AME BURT VISIT [facility] 15 . MINUTES OFFICE 08802 ADELAIDE HERNANDEZ OUTPATIEN 1 1 [facility]VIA LIZZY T VISIT CLINIC 15 PSC MINUTES OFFICE 86481 ADELAIDE HERNANDEZ OUTPATIEN 1 1 [facility] LIZZY T VISIT CLINIC 15 PSC MINUTES OFFICE 65568 SHANNA CAMEJO OUTPATIEN 1 1 Daryl BURT VISIT [facility] 15 . [facility] 55667 [facility] LINDA OUTPATIEN 0 0 ELVIA Brito VISIT URGENT 25 TREAT MINUTES OFFICE 16804 ADELAIDE KULKARNI OUTPATIEN 0 0 ELVIA IRWIN T VISIT CLINIC 10 PSC MINUTES OFFICE 85465 OTERO ANTWON CAMEJO OUTPATIEN 0 0 Daryl BURT NEW 45 [facility] MINUTES . OFFICE 25335 ADELAIDE HERNANDEZ OUTPATIEN 0 0 ELVIA Brito NEW 20 CLINIC MINUTES PSC OFFICE 69000 [facility] OUTPATIEN 0 0 ELVIA Brito VISIT URGENT 25 TREATMENT MINUTES ASSOC OFFICE 11901 SC MARILYNN PARKINSON OUTPATIEN 0 0 MEDICAL T NEW 45 SERV MINUTES FOUNDATIO OFFICE 68882 SURGICAL FLASH, OUTPATIEN 0 0 ASSOCIATI JON P T NEW 45 ON MINUTES HOSPITAL [facility] 51824 [facility] OUTPATIEN 0 0 ELVIA Brito NEW 45 URGENT MINUTES TREATMENT ASSOC
--- OUTSIDE RECORDS SUMMARY | 2016-05-22 17:50 | External Medical Summary Rpt ---
Author Author , Organization [employer] Address Unknown Phone Unavailable Care Team Providers Care Chaser Apprentice Name Role Phone [employer], Unavailable Unavailable [employer] YEMENI ESOTERIC Unavailable Unavailable LABORATORI, YEMENI ESOTERIC LABORATORI AMISHA DIETRICH MD, PSC, Unavailable Unavailable AMISHA DIETRICH MD, PSC AYOOB AND, AYOOB AND Unavailable Unavailable SHANNA BURT, Unavailable Unavailable LindaP.S.CAyush, SHANNA BURT M.D.P.S.C. [facility] Unavailable Unavailable [facility] Unavailable Unavailable MED[facility], [facility] MARILYN SANDERS Unavailable Unavailable MARILYN LANE, MARILYN Unavailable Unavailable LANE BUX ANJ, BUX ANJ Unavailable Unavailable [facility] Unavailable [facility] CELLAROSI - YORBA Unavailable Unavailable PAT, CELLAROSI - YORBA PAT ANTWON BASHIR, ANTWON BASHIR Unavailable Unavailable [facility], Unavailable Unavailable [facility] Unavailable Unavailable SPECIALIST, [facility] # [id number], Unavailable Unavailable [facility] # [id number] [facility] [place], [facility] [place] ESTUS LINDA, ESTUS LINDA Unavailable Unavailable ESTUS, JAVI, ESTUS, Unavailable Unavailable JAVI FINCHUM ELL, FINCHUM Unavailable Unavailable [facility] Unavailable Unavailable MEDICAL, [facility] Un[facility] Unavailable Unavailable HOSPITA, [facility] Un[facility] Un[facility], [facility] CAYETANO SHARON G, Unavailable Unavailable CAYETANO, SHARON G FLASH, JON P, Unavailable Unavailable FLASH, JON P ANDREA BAR, ANDREA BAR Unavailable Unavailable [facility] Un[facility] Un[facility], [facility], Unavailable Unavailable [facility] KEEDY JAIRON, KEEDY JAIRON Unavailable Unavailable [facility] Unavailable Unavailable [facility]AT, [facility] Unavailable Unavailable [...] [facility], Unavailable Unavailable [facility] KAREN CRI, KAREN CRI Unavailable Unavailable SHAD LAURA, SHAD LAURA Unavailable Unavailable SHAD LAURA, SHAD LAURA Unavailable Unavailable THIEN FAYETTE URBAN Unavailable Unavailable COGOVT, THIEN FAYETTE URBAN COGOVT [facility] Unavailable Unavailable COGOVT, THIEN FAYETTE URBAN COGOVT [facility] Unavailable Unavailable LABORATO, [facility] Unavailable Un[facility] Unavailable [facility]available LABORATORY, [facility] Unavailable Unavailable PHARMACY, [facility] LINGREEN DENNIS, Unavailable Unavailable LINGREEN DENNIS MYRA HAM, MYRA HAM Unavailable Unavailable MYRA HAM, MYRA HAM Unavailable Unavailable [facility] Unavailable Unavailable SERVICES, [facility] MITTLESTEADT KENISHA, Unavailable Unavailable MITTLESTEADT KENISHA MORRIN, MORRIN Unavailable Unavailable [facility] Unavailable Unavailable [facility], [facility], Unavailable Unavailable [facility], Unavailable Unavailable [facility] Unavailable Unavailable INCORPORAT, [facility] RABIEE ABD, RABIEE Unavailable Unavailable [facility] Unavailable Unavailable [facility] [place], [facility] Unavailable Unavailable [id number] # [id number], [facility] [id number] # [id number] MARILYNN SIB, MARILYNN SIB Unavailable Unavailable HEATHER NANCY, HEATEHR NANCY Unavailable Unavailable [facility] [...] WADDLES RYA, WADDLES Unavailable Unavailable R[id number] # Unavailable Unavailable [id number], [id number] # [id number] [facility] # Unavailable Unavailable 4892, [facility] # 4892 DAVID HERCULES Unavailable Unavailable JEREMY STEWART, Unavailable Unavailable JEREMY HERNANDEZ W, SEMAJ W Unavailable Unavailable JEN MAT, JEN MAT Unavailable Unavailable Purpose Continuity of Care Document - 03-09-2009 through 2016 Problems Code Diagnosis DOS Provider Status M170 BILATERAL 04-04-2016 [facility] OSTEOARTHRI ASSOCIAT TIS OF KNEE [id number] PAIN IN 04-04-2016 [place] RIGHT [facility] ORTHOPEDIC ASSOCIAT [id number] PAIN IN 04-04-2016 [place] LEFT [facility] ORTHOPEDIC ASSOCIAT E119 TYPE 2 04-02-2016 [facility] WITHOUT GROUP COMPLICATIO NS G8929 OTHER 04-02-2016 [facility] MEDICAL GROUP I10 ESSENTIAL 04-02-2016 [facility] HYPERTENSIO MEDICAL N GROUP J431 PANLOBULAR 04-02-2016 [facility] K219 GASTRO-ESOP 04-02-2016 [facility] REFLUX HEALTH DISEASE MEDICAL WITHOUT GROUP ESOPHAGITIS M545 LOW BACK 04-02-2016 [facility] PAIN HEALTH MEDICAL GROUP 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-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 [id number] NURSING HOME 02-06-2016 [facility] CURRENT USE [facility]OS[facility] OF OPIATE INC ANALGESIC E19535 EFFUSION 12-02-2015 [facility] RIGHT KNEE [facility] M5116 INTERVERTEB 10-10-2015 [facility] RAL DISC [facility] D/O INC W/RADICULOP ATHY LUMB RGN [id number] OTHER LONG 10-10-2015 [facility] TERM [facility] CURRENT INC DRUG THERAPY O95028 SPONDYLOSIS 04-29-2015 [facility] W/O [facility] MYELOPATH/R INC ADICULOPATH Y LUMB RGN M069 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 ARTHRITIS , PSC UNSPECIFIED L82644 SPONDYLOSIS 03-18-2015 [facility] W/O MEM [facility] MYELOPATH/R INC ADICULPATHY LS RGN E785 HYPERLIPIDE 03-08-2015 [facility] EFRAIN GROUND UNSPECIFIED FAMILY CLINI M549 DORSALGIA 03-04-2015 [facility] UNSPECIFIED MEM HOSP INC M5030 OTH 02-14-2015 [facility] CERVICAL [facility] DISC INC DEGENERATIO N UNS CERV REGION G894 CHRONIC 12-06-2014 [facility] PAIN GROUND SYNDROME FAMILY CLINI 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 UNS CLINI 86603 DIAB W/O 11-05-2014 LAB [facility] COMP TYPE [facility] II/UNS NOT HOLDINGS STATED UNCNTRL 99294 DIAB 11-05-2014 LAB [facility] W/NEURO [facility] MANIFESTS HOLDINGS TYPE II/UNS NOT UNCNTRL 4019 UNSPECIFIED 11-05-2014 [facility] ESSENTIAL [facility] HYPERTENSIO HOLDINGS N 73616 UNSPECIFIED 11-05-2014 [facility] ARTHROPATHY HOLDINGS SITE UNSPECIFIED 40425 SHORTNESS 10-15-2014 [facility] [place] OF BREATH [facility] 7932 NONSPC ABN 10-15-2014 [place] [facility] RAD&OTH HOSPITA EXAM OTH INTRTHOR ORGN 73597 UNSPECIFIED 10-06-2014 [facility] SLEEP GROUND DISTURBANCE FAMILY CLINI 7823 EDEMA 07-08-2014 [facility] GROUND FAMILY CLINI 51638 ESOPHAGEAL 06-21-2014 [facility] REFLUX GROUND FAMILY CLINI 3670 HYPERMETROP 12-07-2013 [place] 4011 ESSENTIAL 09-25-2013 [facility] N, BENIGN 25559 IMPOTENCE 09-25-2013 [place] OF [facility]RGENT CARE ORIGIN 66892 OTHER 09-25-2013 [facility] FATIGUE 7213 LUMBOSACRAL 08-06-2013 [facility]IN SPONDYLOSIS SPECIALIST WITHOUT MYELOPATHY 53262 DEGEN 08-06-2013 [facility] LUMBAR/LUMB H PAIN OSACRAL SPECIALIST INTERVERTEB RAL DISC 75294 SPINAL STEN 08-06-2013 [facility] LUMB REG H PAIN W/O SPECIALIST NEUROGENIC CLAUDICATIO N 7244 THORACIC/CLARY 08-06-2013 [facility] MBOSACRAL H PAIN NEURITIS/RA SPECIALIST DICULITIS UNSPEC 14627 DISPLCMT 05-26-2013 [facility] INTERVERT OF [place] DISC W/O MYELOPATHY 7248 OTHER 05-26-2013 [facility] SYMPTOMS [facility] REFERABLE OF [place] TO BACK 7384 ACQUIRED 05-26-2013 [facility] SPONDYLOLIS [facility] THESIS OF [place] 06725 DIAB W/O 04-14-2013 [facility] COMP TYPE II/UNS TYPE UNCNTRL V700 ROUTINE 04-14-2013 [facility] [place] [facility] MEDICAL EXAM@HEALTH CARE FACL 23663 OTHER 12-08-2012 PHANI KAITLYNN CHRONIC PAIN 496 CHRONIC 12-08-[address]NN [address] OBSTRUCTION NEC 7242 LUMBAGO 12-08-2012 PHANI KAITLYNN 40475 OBESITY, 07-30-2012 LAB [facility] OF UNSPECIFIED [facility] 15729 CRAMP OF 01-04-2012 [place] LIMB [facility] 7140 RHEUMATOID 2012 MYRA HAM ARTHRITIS 41702 PRIMARY 2012 MYRA HAM LOCALIZED OSTEOARTHRO SIS LOWER LEG 42435 PAIN IN 12-19-2011 PHANI KAITLYNN JOINT PELVIC REGION AND THIGH 44092 PAIN IN 12-19-2011 [place] JOINT, [facility] LOWER LEG [facility]OSPITA 7245 UNSPECIFIED 12-19-2011 [facility] 57442 OTHER 12-19-2011 [facility] [place] NONSPECIFIC RADIOLOGY ABNORMAL FINDING OF LUNG FIELD 5369 UNSPECIFIED 09-10-2011 SHAD SANCHEZ FUNCTIONAL DISORDER OF STOMACH 7226 DEGENERATIO 09-10-2011 SHAD Jean Baptiste INTERVERTEB RAL DISC SITE UNSPEC 68809 DIARRHEA 09-10-2011 SHAD SANCHEZ 04501 MORBID 06-27-2011 SHAD SANCHEZ OBESITY V5869 LONG-TERM 06-25-2011 JACQUE CASAS (CURRENT) USE OF OTHER MEDICATIONS 79208 PEPT ULCR 06-17-2011 [facility] ACUT/CHRN HOSPITA W/O HEMOR PERF/OBST 66348 FEVER 06-17-2011 [place] UNSPECIFIED [facility] 24211 ABDOMINAL 06-17-2011 [facility] [place] PAIN RIGHT RADIOLOGY UPPER QUADRANT 44388 ABDOMINAL 06-17-2011 [place] PAIN, [facility]STRIC [facility] 31600 NAUSEA WITH 06-11-2011 [facility] PHYSI 17775 ABDOMINAL 06-11-2011 THIEN FAYETTE PAIN, URBAN UNSPECIFIED COGOVT SITE 08133 OSTEOARTHRO 05-25-2011 JACQUE CASAS S UNSPEC WHETHER GEN/LOC UNSPEC SITE 7234 BRACHIAL 05-25-2011 JACQUE CASAS NEURITIS OR RADICULITIS NOS 7099 UNSPECIFIED 03-26-2011 JACQUE CASAS DISORDER OF SKIN&SUBCUT ANEOUS TISSUE 74307 PAIN IN 03-26-2011 JACQUE CASAS JOINT, SHOULDER REGION 7291 UNSPECIFIED 03-26-2011 JACQUE CASAS MYALGIA AND MYOSITIS 7224 DEGENERATIO 03-24-2011 [place] [facility] OF SERV CERVICAL FOUNDATION INTERVERTEB RAL DISC 45916 INJR OTH 03-24-2011 [place] [facility] SPEC SERV INTRATHR FOUNDATIO ORGN W/O OPN WND CAV OTH 920 CONTUSION 03-24-2011 [place] [facility] OF FACE SERV SCALP AND FOUNDATION NECK EXCEPT EYE 08956 INJURY OF 03-24-2011 [facility] FACE AND SERV NECK OTHER FOUNDATION AND UNSPECIFIED 9596 INJURY 03-24-2011 [place] [facility] OTHER AND SERV UNSPECIFIED FOUNDATIO HIP AND THIGH 9598 INJURY 03-24-2011 THIEN FAYETTE OTH&UNSPEC URBAN OTH SPEC COGOVT SITES INCL MULTIPLE E8889 UNSPECIFIED 03-24-2011 [facility] FALL SERV [facility]OUNDATION 7243 SCIATICA 02-13-2011 JACQUE CASAS 7292 UNSPECIFIED 02-13-2011 JACQUE CASAS NEURALGIA NEURITIS AND RADICULITIS V5883 ENCOUNTER 02-13-2011 [facility] THERAPEUTIC HOSP DRUG MONITORING 25366 UNSPECIFIED 08-10-2010 [place] [facility] CY 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 7202 SACROILIITI 04-12-2010 [facility] S NOT BURT, ELSEWHERE [facility].S.C[facility] CLASSIFIED 7862 COUGH 03-08-2010 [facility] 7931 NONSPEC 03-08-2010 [facility] [place] FIND RAD RADIOLOGY OTH EXAM BODY STRUCT LUNG FIELD 24869 CHEST PAIN 11-22-2009 NEW UNSPECIFIED [facility] PSC 3569 UNSPEC 09-02-2009 [facility] HEREDIT&IDI [facility]INIC OPATHIC LABORATORY PERIPHERAL NEUROPATHY 7866 SWELLING, 09-02-2009 [place] [facility] LUMP IN [facility] CHEST 67142 OTHER 04-18-2009 [place] [facility] DISEASES OF SERV LUNG NOT FOUNDATIO ELSEWHERE CLASSIFIED 2357 NEOPLASM 04-01-2009 [facility]GICAL [facility] BEH[facility]IOR TRACH BRONCHUS&CLARY NG 7856 ENLARGEMENT 03-25-2009 [facility] [place] OF LYMPH RADIOLOGY NODES 7910 PROTEINURIA 03-09-2009 [facility] URGENT TREATMENT ASSOC Medications Na ND Rx Da Fi Fi [...] 1- 8- 00 NG 52 MA ve RI 29 20 20 TO N DE 72 11 11 N WI 5 CL LL 20 IN IA IC M MG PH TA AR BL MA ET CY GA 16 08 09 1 30 30 PA 61 CL Ac BA 71 -0 -0 .0 SA 08 AR ti PE 40 4- 2- 00 DE 32 K ve NT 66 20 20 NA 2 PA IN 20 11 11 UL 2 PH A 30 AR 0 MA MG CY CA PS UL E OX 00 08 09 0 18 30 PA 20 CL Ac YC 40 -0 -0 0. SA 97 AR ti OD 68 4- 2- 00 DE 22 K ve ON 53 20 20 0 NA 9 PA E 00 11 11 UL HC 1 PH A L AR 30 MA CY MG TA BL ET OX 00 08 08 0 18 30 PA 20 CL Ac YC 40 -0 -0 0. SA 96 AR ti OD 68 4- 5- 00 DE 81 K ve ON 53 20 20 0 NA 2 PA E 00 11 11 UL HC 1 PH A L AR 30 MA CY MG TA BL ET GA 16 08 08 1 30 30 PA 61 CL Ac BA 71 -0 -0 .0 SA 08 AR ti PE 40 4- 5- 00 DE 32 K ve NT 66 20 20 NA 2 PA IN 20 11 11 UL 2 PH A 30 AR 0 MA MG CY CA PS UL E FU 00 05 08 3 30 30 LE 26 WI Ac RO 05 -3 -0 .0 XI 99 TT ti SE 44 1- - 00 NG 52 MA ve RI 29 20 20 TO N DE 72 11 11 N WI 5 CL LL 20 IN IA IC M MG PH TA AR BL MA ET CY 52 06 07 0 18 30 PA 20 FL Ac 15 -0 -0 0. SA 96 IN ti 20 1- 7 DE 39 CH ve 21 20 20 0 NA 3 UM 50 11 11 2 PH EL AR LE MA N CY J GA 16 06 07 1 30 30 PA 61 FL Ac BA 71 -0 -0 .0 SA 07 IN ti PE 40 1 DE 84 CH ve NT 66 20 20 NA 7 UM IN 20 11 11 2 PH EL 30 AR LE 0 MA N MG CY J CA PS UL E AM 00 06 07 1 30 30 PA 61 FL Ac IT 60 -0 -0 .0 SA 07 IN ti RI 32 DE 84 CH ve PT 21 20 20 NA 8 UM YL 33 11 11 IN 2 PH EL E AR LE HC MA N L CY J 25 MG TA B ME 00 06 07 1 30 30 PA 61 FL Ac LO 37 -0 -0 .0 SA 07 IN ti XI 81 1 DE 84 CH ve CA 06 20 20 NA 9 UM M 60 11 11 7. 1 PH EL 5 AR LE MG MA N CY J TA BL ET 52 06 06 0 18 30 PA 20 FL Ac 15 -0 -0 0. SA 95 IN ti 20 1 DE 92 CH ve 21 20 20 0 NA 3 UM 50 11 11 2 PH EL AR LE MA N CY J GA 16 06 06 1 30 30 PA 61 FL Ac BA 71 -0 -0 .0 SA 07 IN ti PE 40 1 3 DE 84 CH ve NT 66 20 20 NA 7 UM IN 20 11 11 2 PH EL 30 AR LE 0 MA N MG CY J CA PS UL E AM 00 06 06 1 30 30 PA 61 FL Ac IT 60 -0 -0 .0 SA 07 IN ti RI 32 DE 84 CH ve PT 21 20 [...] 1- 1- 00 NG 52 MA ve RI 29 20 20 TO N DE 72 11 11 N WI 5 CL LL 20 IN IA IC M MG PH TA AR BL MA ET CY ME 00 02 05 1 30 [...] L CY 25 MG TA B GA 16 02 05 1 30 30 [...] UL 2 PH A AR MA CY SE 31 09 04 5 15 30 [...] .0 LG 01 AR ti XI 00 6- 8- 00 RE 54 K ve CA [...] 3- 1- 00 NG 26 S ve RI 20 20 20 TO RI DE 80 10 11 N CH 1 [...] 91 TA 3 BL # ET 03 FU 00 12 01 2 30 30 LE 26 AD Ac RO 37 -1 -1 .0 XI 74 AM ti SE 80 3- 3- 00 NG 26 S ve RI 20 20 20 TO RI DE 80 10 11 N CH 1 [...] 3- 3- 00 NG 26 S ve RI 20 20 20 TO RI DE 80 10 10 N CH 1 [...] 03 91 TA 3 BL # ET OX 00 11 11 0 18 30 [...] 9- 9- 00 PH 91 Y ve RI 20 20 20 AR JA DE 81 10 10 MA NA 0 CY S 20 # MG 02 33 TA 2 BL ET LI 68 01 30 30 HO 60 WE Ac SI 18 -0 -[address] ti NO 00 TO 38 ve NH 51 20 20 WN 0 HE IL 80 10 10 NR -H [address] AR M Z MA 10 CY -1 2. 5 MG TA B Procedures Procedure DOS Code Location Performer Comment ARTHROCEN [place] [facility] JOINER 7 ORTHOPEDI ASPIR&/IN C J MAJOR ASSOCIAT JT/BURSA W/O US RADIOLOGI 47136 [place] EXAM 7 ORTHOPEDI KNEE C COMPLETE ASSOCIAT 4/MORE VIEWS INJECTION J1030 [facility] 7 ORTHOPEDI ORTHOPEDI METHYLPRE C C DNISOLONE ASSOCIAT ASSOCIAT ACETATE 40 MG HOSPITAL G0463 [facility] OUTPATIEN 6 [facility] T CLIN INC INC VISIT ASSESS & MGMT PT DRUG TST G0477 [facility] PRESUMP;C 6 MEM H[facility] MEM HOSP PBL BEING INC INC READ DC OPT OBV ONLY ARTHROCEN 88085 [facility] MARISEL 6 ORTHOPEDI ORTHOPEDI ASPIR&/IN C C J MAJOR ASSOCIAT ASSOCIAT JT/BURSA W/O US INJECTION J1030 [place] [address] METHYLPRE C DNISOLONE ASSOCIAT ACETATE 40 MG RADIOLOGI 53256 JEW JEW C 6 [facility] EXAMINATI [facility] ON KNEE 3 VIEWS HOSPITAL G0463 [facility] OUTPATIEN 6 MEM [facility] MEM [facility]OS[facility] T CLIN INC INC VISIT ASSESS & MGMT PT DRUG TEST G0481 [facility] DEFINITV [address] ID INC INC METH P DAY 8-14 DRUG CL DRUG TST G0477 [facility] PRESUMP;C 6 MEM HOSP MEM HOSP PBL BEING INC INC READ DC OPT OBV ONLY DRUG TST G0477 [facility] F[facility] PRESUMP;C 6 MEM H[facility] MEM HOSP PBL BEING INC INC READ DC OPT OBV ONLY HOSPITAL G0463 [facility] OUTPATIEN 6 [facility] MEM HOSP T CLIN INC INC VISIT ASSESS & [place] [address] AMISHA BUX ANJ DX/THER 6 MD KAUR, AGT PVRT PSC FACET JT LMBR/SAC 3+ LEVEL NJX 11509 AMISHA BUX ANJ DX/THER 6 MD KAUR, AGT PVRT PSC FACET JT LMBR/SAC 1 LEVEL NJX 67945 AMISHA BUX ANJ DX/THER 6 MD KAUR, AGT PVRT PSC FACET JT LMBR/SAC 2ND LEVEL DRUG TST G0477 [facility] PRESUMP;C 6 MEM H[facility] MEM HOSP PBL BEING INC INC READ [place]BV [place] NJX [address]603 AMISHA KAREN CRI DX/THER 6 MD KAUR, AGT PVRT PSC FACET JT LMBR/SAC 3+ L[place]EL NJX 51670 AMISHA KAREN CRI DX/THER 6 MD KAUR, AGT PVRT PSC FACET JT LMBR/SAC 2ND LEVEL NJX 72240 [facility] DX/THER 6 MEM [facility]OS[facility] AGT PVRT INC INC FACET JT LMBR/SAC 1 LEVEL THERAPEUT 91004 [facility] IC PX 1/> 6 MEM HOS[facility] MEM [facility]OSP AREAS INC INC EACH 15 MIN EXERCISES THERAPEUT 52388 [facility] IC PX 1/> 5 MEM [facility]OS[facility] AREAS INC INC EACH 15 MIN EXERCISES APPL 00413 [facility] MODALITY 5 MEM [facility] MEM [facility]OSP 1/> AREAS INC INC ELEC STIMJ UNATTENDE D APPL 03110 [facility] MODALITY 5 [facility] MEM [facility]OS[facility] 1/> AREAS INC INC ULTRASOUN D EA 15 MIN APPL 58862 [facility] MODALITY 5 MEM HOS[facility] MEM [facility]OSP 1/> AREAS INC INC ULTRASOUN D EA 15 MIN APPL 49988 [facility] MODALITY 5 MEM H[facility] MEM HOSP 1/> AREAS INC INC ELEC STIMJ UNATTENDE D THERAPEUT 77333 [facility] IC PX 1/> 5 MEM HOSP MEM HOSP AREAS INC INC EACH 15 MIN EXERCISES APPL 64340 [facility] MODALITY 5 MEM HOSP MEM HOSP 1/> AREAS INC INC ELEC STIMJ UNATTENDE D APPL 98716 [facility] MODALITY 5 MEM [facility] MEM [facility]OS[facility] 1/> AREAS INC INC ULTRASOUN D EA 15 MIN APPL 08680 [facility] MODALITY 5 MEM [facility]OS[facility] 1/> AREAS INC INC ELEC STIMJ UNATTENDE D PHYSICAL 88084 [facility] THERAPY 5 MEM HOS[facility] MEM HOSP EVALUATIO INC INC N APPL 15140 [facility] F[facility] MODALITY 5 [facility] MEM HOSP 1/> AREAS INC INC ULTRASOUN D EA 15 MIN ALBUMIN 52517 [facility] URINE 5 [facility] MICROALBU HOLDINGS HOLDINGS MIN QUANTIATI VE COMPREHEN 48052 LAB L[facility] LAB [facility] SIVE 5 [facility] METABOLIC HOLDINGS HOLDINGS PANEL HEMOGLOBI 92956 LAB L[facility] LAB LUC[facility] N 5 [facility] GLYCOSYLA HOLDINGS HOLDINGS RIDDHI A1C RHEUMATOI 02013 LAB L[facility] LAB [facility] D FACTOR 5 [facility] QUANTITAT [place] [address] LAB L[facility] LAB LUC[facility] BLOOD/URI 5 [facility] ACID HOLDINGS HOLDINGS SEDIMENTA 55026 LAB L[facility] LAB [facility] TION RATE 5 [facility] RBC HOLDINGS HOLDINGS AUTOMATED RADIOLOGI 18195 [facility] EXAM 5 N N CHEST 2 COMMUNTIY COMMUNTIY VIEWS HOSPITA HOSPITA FRONTAL&L ATERAL URNLS DIP 06627 [facility] HEATHER CRUZ 5 GROUND STICK/TAB FAMILY LET RGNT CLINI NON-AUTO W/O MICRSCP COLLECTIO 54963 ST[facility] HEATHER CRUZ N VENOUS 5 GROUND BLOOD FAMILY VENIPUNCT CLINI URE HEMOGLOBI 71864 LAB [facility] LAB LUCILA N 5 [facility] GLYCOSYLA HOLDINGS HOLDINGS RIDDHI A1C LIPID 11557 LAB [facility] LAB [facility] PANEL 5 [facility] HOLDINGS HOLDINGS GENERAL 86058 LAB L[facility] LAB LUCILA HEALTH 5 [facility] [place] [address] [facility] PROSTATE 4 DIAGNOSTI DIAGNOSTI SPECIFIC CS [place] [address] [facility] THYROID 4 DIAGNOSTI DIAGNOSTI STIMULATI CS CS NG INCORPORA HORMONE T TSH COMPREHEN 46240 [facility] SIVE 4 DIAGNOSTI DIAGNOSTI METABOLIC CS CS PANEL INCORPORA T LIPID 60866 [facility] PANEL 4 DIAGNOSTI DIAGNOSTI CS CS INCORPORA T BLOOD 28898 [facility] COUNT 4 DIAGNOSTI DIAGNOSTI COMPLETE CS CS AUTO&AUTO INCORPOR[place] NJX 62895 [facility] DX/THER 4 LTH PAIN DENNIS SBST SPECIALIS EPIDURAL/ T SUBARACH LUMBAR/SA CRAL FLUORO 46242 [facility] NEEDLE/CA 4 LTH PAIN DENNIS TH SPECIALIS SPINE/PAR T ASPINAL DX/THER INJECTION J1040 [facility] COMMONWEA 4 LTH PAIN LTH PAIN METHYLPRE SPECIALIS SPECIALIS DNISOLONE T T ACETATE 80 MG LOCM Q9967 [facility] 300-399 4 LTH PAIN DENNIS MG/ML SPECIALIS IODINE T CONCENTRA TION PER ML MRI 21509 [facility] SPINAL 4 REGIONAL REGIONAL CANAL MEDICAL MEDICAL LUMBAR W/O CONTRAST MATERIAL HEMOGLOBI 42550 [facility] N 4 DIAGNOSTI DIAGNOSTI GLYCOSYLA CS CS RIDDHI A1C INCORPORA T HEMOGLOBI 18278 LAB [facility] LAB LUCILA N 3 OF AMERIC GLYCOSYLA MANUELA HOLDING RIDDHI A1C HOLDINGS BLOOD 06936 [facility] COUNT 3 LABS, [employer] [facility] COMPLETE AUTO&[place] [address] LAB LUCILA LAB L[facility] PROSTATE 3 OF AMERIC SPECIFIC [facility] [place] [address] LAB LUC[facility]A LAB LUCILA PROSTATE 3 OF AMERIC SPECIFIC [facility] HOLDING ANTIGEN HOLDINGS FREE COMPREHEN 66003 LAB [facility] LAB LUC[facility] SIVE 3 OF AMERIC METABOLIC [place] [address] LAB L[facility]A LAB LUC[facility] THYROID 3 OF AMERIC STIMULATI [facility] HOLDING NG HOLDINGS HORMONE TSH COLLECTIO 16312 [facility] VENOUS 2 N N BLOOD [facility] VENIPUNCT HOSPITA HOSPITA URE POTASSIUM 84320 [facility] SERUM 2 N N PLASMA/WH [facility] OLE BLOOD HOSPITA HOSPITA DRUG SCR G0434 [facility] NOT 2 CHROMATOG RAPHIC; ANY NUMBER PT ENC RADEX 55505 [facility] [place] JEN MAT HIPS 2 RADIOLOGY BILATERAL 2 VIEWS ANTEROPOS T PELVIS RADEX HIP 67949 [facility] 2 N N [facility] L HOSPITA HOSPITA COMPLETE MINIMUM 2 VIEWS ECG 55048 [facility] ROUTINE 2 N N ECG [facility] W/LEAST HOSPITA HOSPITA 12 LDS TRCG ONLY W/O I&R COLLECTIO 52959 [facility] N VENOUS 2 N N BLOOD [facility] VENIPUNCT HOSPITA HOSPITA URE COMPREHEN 50909 [facility] SIVE 2 N N METABOLIC [facility] PANEL HOSPITA HOSPITA RADEX 27265 [facility] SPINE 2 N N LUMBOSACR [facility] AL 2/3 HOSPITA HOSPITA VIEWS BLOOD 44887 [facility] COUNT 2 N N COMPLETE [facility] AUTO&AUTO HOSPITA HOSPITA DIFRNTL WBC RADIOLOGI 74575 [facility] C EXAM 2 N N CHEST 2 [facility] HOSPITA HOSPITA FRONTAL&L ATERAL OVA&MISTY 58314 YEMENI YEMENI ITES 2 ESOTERIC ESOTERIC DIRECT LABORATOR LABORATOR SMEARS I I CONCENTRA TION & [place] [address] YEMENI YEMENI SHIGA-LIK 2 ESOTERIC ESOTERIC E TOXIN LABORATOR LABORATOR I I CUL BACT 74286 YEMENI YEMENI STOOL 2 ESOTERIC ESOTERIC AEROBIC LABORATOR LABORATOR ISOL I I SALMONELL A&SHIGELL CUL BACT 01847 YEMENI YEMENI STOOL 2 ESOTERIC ESOTERIC AEROBIC LABORATOR LABORATOR ADDL I I PATHOGENS &[place] [address] [facility] LIPASE 2 N N [facility] HOSPITA HOSPITA THER 94356 [facility] PROPH/DX 2 N N NJX IV [facility] PUSH HOSPITA HOSPITA SINGLE/1S T SBST/DRUG THER 63775 [facility] PROPH/DX 2 N N NJX EA COMMUNITY [facility] SEQL IV HOSPITA HOSPITA PUSH SBST/DRUG FAC URNLS DIP 40803 [facility] 2 N N STICK/TAB COMMUNITY [facility] LET HOSPITA [place] [address] [facility] ABDOMEN & 2 N N PELVIS [facility] W/CONTRAS HOSPITA HOSPITA T MATERIAL THERAPEUT 29919 [facility] IC 2 N N INJECTION [facility] IV PUSH HOSPITA HOSPITA EACH NEW DRUG HI OSM Q9963 [facility] CONTRST 2 N N MATL [facility] [phone] HOSPITA HOSPITA MG/ML IODINE CONC ML INJECTION J2270 [facility] MORPHINE 2 N N SULFATE [facility] UP TO [address] [place] [address] [facility] INFUSION 2 N N HYDRATION [facility] EACH HOSPITA HOSPITA ADDITIONA L HOUR COMPREHEN 07620 [facility] SIVE 2 N N [facility]ABOLIC [facility] [place] [address] [facility] AMYLASE 2 N N [facility] HOSPITA HOSPITA LOCM Q9967 [facility] [phone] 2 N N MG/ML [facility] IODINE HOSPITA HOSPITA CONCENTRA TION PER ML INJECTION J2405 [facility] 2 N N OND[facility]SETR [facility] ON HCL HOSPITA HOSPITA PER 1 MG BLOOD 40450 [facility] COUNT 2 N N COMPLETE [facility] AUTO&AUTO [place] [address] [facility] [place] BAR ABDOMINAL 2 RADIOLOGY REAL TIME W/IMAGE LIMITED GROUND A0425 THIEN THIEN MILEAGE 2 FAYETTE FAYETTE PER URBAN URBAN STATUTE COGOVT COGOVT MILE AMBULANCE A0429 THIEN THIEN SERVICE 2 FAYETTE FAYETTE BLS URBAN URBAN EMERGENCY COGOVT COGOVT TRANSPORT DRUG SCR G0434 JACQUE SANTILLAN NOT 2 [place] AUGUSTO CHROMATOG RAPHIC; ANY NUMBER PT ENC DRUG SCR G0434 JACQUE SANTILLAN NOT 2 [place] AUGUSTO CHROMATOG RAPHIC; ANY NUMBER PT ENC AMB A0427 THIEN THIEN SERVICE 2 FAYETTE FAYETTE ALS URBAN URBAN EMERGENCY COGOVT COGOVT TRANSPORT LEVEL 1 RADIOLOGI 39187 [place] AYOO[place] AND C 2 MEDICAL EXAMINATI SERV ON [place] [address] [place] A[place] AND HEAD/BRAI 2 MEDICAL N W/O SERV CONTRAST FOUNDATIO MATERIAL N GROUND A0425 THIEN THIEN MILEAGE 2 FAYETTE FAYETTE PER URBAN URBAN STATUTE COGOVT COGOVT MILE RADIOLOGI 26764 [place] AYOO[place] AND C 2 MEDICAL EXAMINATI SERV ON PELVIS FOUNDATIO 1/[address] [place] [address] [place] A[place] AND CERVICAL 2 MEDICAL SPINE W/O [place] [address] [facility] PROSTATE 1 CLINIC CLINIC SPECIFIC LABORATO LABORATO ANTIGEN TOTAL BASIC 31482 [facility] METABOLIC 1 CLINIC CLINIC PANEL LABORATO LABORATO CALCIUM TOTAL CT THORAX 56325 [facility] [place] JEN MAT W/O 1 RADIOLOGY CONTRAST MATERIAL RADIOLOGI 26778 [facility] C EXAM 0 [facility] CHEST 2 URGENT VIEWS TREAT FRONTAL&L ATERAL ECHO 10045 [facility] TTHRC R-T 0 [facility] 2D W/WO CLINIC M-MODE PSC REST&STRS CONT ECG DOP 30297 [facility] ECHOCARD 0 [facility] COLOR CLINIC FLOW PSC VELOCITY MAPPING DOPPLER 69622 [facility] ECHOCARD 0 [facility] PULSE CLINIC WAVE PSC W/SPECTRA L DISPLAY GLUCOSE 82565 [facility] QUANTITAT 0 CLINIC CLINIC [place] BLOOD LABORATO LABORATO XCPT REAGENT STRIP HEMOGLOBI 98902 [facility] N 0 CLINIC CLINIC GLYCOSYLA LABORATO LABORATO RIDDHI A1C TRANSFERA 22576 [facility] SE 0 CLINIC CLINIC ALANINE LABORATO LABORATO AMINO ALT SGPT BLOOD 81838 [facility] COUNT 0 CLINIC CLINIC COMPLETE LABORATOR LABORATOR AUTOMATED Y Y CYANOCOBA 48305 [facility] GABE 0 CLINIC CLINIC VITAMIN LABORATOR LABORATOR B-12 Y Y COMPREHEN 06724 [facility] SIVE 0 CLINIC CLINIC METABOLIC [place] [address] [facility] THYROID 0 CLINIC CLINIC STIMULATI LABORATOR LABORATOR NG Y Y HORMONE TSH COMPREHEN 62338 [facility] OF SIVE 0 [facility] METABOLIC PANEL RADIOLOGI 64287 [place] ESTUS, C EXAM 0 [facility] JAVI CHEST 2 URGENT VIEWS TREATMENT FRONTAL&L ASSOC ATERAL CT THORAX 81373 [facility] [place] CAYETANO, 0 RADIOLOGY SHARON G W/CONTRAS T MATERIAL [facility]OLOGI 47595 [facility] ENGLE[facility] JAVI CHEST 2 URGENT VIEWS TREATMENT FRONTAL&L ASSOC ATERAL Encounters Encounter Start End Date Code Location Performer Type Date OFFICE 05927 JO-ANN JONESLEY OUTPATIEN 7 7 ORTHOPEDI T VISIT C 15 ASSOCIAT MINUTES OFFICE 19807 ESTHELA BURCH OUTPATIEN 7 7 HEALTH T VISIT MEDICAL 25 GROUP MINUTES [facility] OUTPATIEN [facility] - 6 6 [facility] - 6 6 [facility] - 6 6 [facility] - 6 6 [facility] - 6 6 [facility] OFFICE 95662 AMISHA MIX OUTPATIEN 6 6 MD KAUR, T VISIT PSC 25 MINUTES [facility] - 6 6 [facility] OUTPATIEN INC T OFFICE 06586 [facility] OUTPATIEN 6 6 GROUND T VISIT FAMILY 15 CLINI MINUTES [facility] - 6 6 [facility] T [facility] - 5 5 [facility] OUTPATIEN INC T OFFICE 24799 [facility] OUT[facility]IEN 5 5 [facility] T VISIT INC 10 MINUTES [facility] - 5 5 [facility] OUTPATIEN INC T OFFICE 74625 AMISHA JONES CRI OUTPATIEN 5 5 MD KAUR, T NEW 45 PSC MINUTES OFFICE 34214 [facility] OUTPATIEN 5 5 GROUND T VISIT FAMILY 15 CLINI MINUTES [facility] - 5 5 N OUTPATIEN COMMUNTIY T HOSPITA OFFICE 64255 [facility] OUTPATIEN 5 5 GROUND T VISIT FAMILY 15 CLINI MINUTES OFFICE 16741 [facility] OUTPATIEN 5 5 GROUND T VISIT FAMILY 15 CLINI MINUTES OFFICE 40838 [facility] OUTPATIEN 5 5 GROUND T VISIT FAMILY 15 CLINI MINUTES OFFICE 32737 [facility] OUTPATIEN 5 5 GROUND T VISIT FAMILY 25 CLINI MINUTES OFFICE 60200 SPRUIELL SPRUIELL OUTPATIEN 4 4 LAW LAW T NEW 30 MINUTES OFFICE 17738 [facility] RABIEE OUTPATIEN 4 4 N URGENT ABD T VISIT CARE 15 MINUTES OFFICE 78129 [facility] RABIEE OUTPATIEN 4 4 N URGENT ABD T VISIT CARE 15 MINUTES OFFICE 46760 [facility] RABIEE OUTPATIEN 4 4 N URGENT ABD T VISIT CARE 15 MINUTES [facility]OS[facility] - 4 4 REGIONAL OUTPATIEN MEDICAL T OFFICE 59278 [facility] RUBI OUTPATIEN 4 4 N URGENT ABD T VISIT CARE 15 MINUTES OFFICE 81883 PHANI PHANI OUTPATIEN 3 3 KAITLYNN KAITLYNN T VISIT 15 MINUTES OFFICE 97951 PHANI PHANI OUTPATIEN 3 3 KATILYNN KAITLYNN T VISIT 15 MINUTES OFFICE 40980 PHANI PHANI OUTPATIEN 3 3 KAITLYNN KAITLYNN T VISIT 15 MINUTES OFFICE 21566 PHANI PHANI OUTPATIEN 3 3 KAITLYNN KAITLYNN T VISIT 15 MINUTES [facility]OSP[facility] - 2 2 N OUTPATIEN COMMUNITY T HOSPITA OFFICE 37791 MYRA RACHELE JEFFREY OUTPATIEN 2 2 T NEW 45 MINUTES EMERGENCY 37744 RASHI SHOOK 2 2 EMERGENCY ADT KENISHA [facility] SERVICES T VISIT HIGH/URGE NT SEVERITY HOSPITAL [facility] - 2 2 N OUTPATIEN COMMUNITY T HOSPITA OFFICE 57833 PHANI PHANI OUTPATIEN 2 2 KAITLYNN KAITLYNN T VISIT 15 MINUTES OFFICE 75618 SHAD SANCHEZ OUTPATIEN 2 2 T VISIT 15 MINUTES OFFICE 71058 SHAD SANCHEZ OUTPATIEN 2 2 T VISIT 15 MINUTES OFFICE 08956 JACQUE SANTILLAN OUTPATIEN 2 2 [facility] AUGUSTO T VISIT 15 MINUTES EMERGENCY 42058 [facility] 2 2 N DEPARTMEN COMMUNITY T VISIT HOSPITA HIGH/URGE NT SEVERITY [facility] - 2 2 N OUTPATIEN COMMUNITY T HOSPITA EMERGENCY 76549 CELLAROSI CELLAROSI DEPT 2 2 - YORBA - YORBA VISIT PAT PAT HIGH SEVERITY& THREAT FUNJ EMERGENCY 34168 [facility] SEMAJ W DEPT 2 2 JEFF VISIT EMERGENCY HIGH PHYSI SEVERITY& THREAT FUNCJ OFFICE 50564 JACQUE SANTILLAN OUTPATIEN 2 2 [place]UST[place] AUGUSTO T VISIT 15 MINUTES OFFICE 00666 JACQUE SANTILLAN OUTPATIEN 2 2 AUGUSTO AUGUSTO T VISIT 15 MINUTES OFFICE 19507 JACQUE SANTILLAN OUTPATIEN 2 2 [place]UG[place] AUGUSTO T VISIT 15 MINUTES OFFICE 96546 [facility] OUTPATIEN 1 1 [facility] T VISIT REHAB 10 HOSP [facility] - 1 1 [facility] OUTPATIEN REHAB T HOSP OFFICE 04504 JACQUE SANTILLAN OUTPATIEN 1 1 [place]UGUSTO AUGUSTO T VISIT 15 MINUTES OFFICE 25218 JACQUE SANTILLAN OUTPATIEN 1 1 [place] AUGUSTO T NEW 45 MINUTES OFFICE 36260 [facility] RUBI OUTPATIEN 1 1 N URGENT ABD T NEW 30 CARE MINUTES OFFICE 82626 [facility] OUTPATIEN 1 1 ELVIA BALL T VISIT CLINIC 10 PSC MINUTES OFFICE 03954 SHANNA VALENCIA OUTPATIEN 1 1 AME BURT VISIT [facility] 15 . MINUTES OFFICE 43253 [facility] PEREZAN OUTPATIEN 1 1 [facility] BALL T VISIT CLINIC 15 PSC MINUTES OFFICE 10436 [facility] DAVID [facility] PSC MINUTES OFFICE 96480 SHANNA CAMEJO OUTPATIEN 1 1 Daryl BURT VISIT [facility] 15 . MINUTES [facility] - 1 1 N OUTPATIEN COMMUNITY T HOSPITA OFFICE 09443 [facility] LINDA OUTPATIEN 0 0 [place] T VISIT URGENT 25 TREAT MINUTES OFFICE 56538 [facility] KULKARNI OUTPATIEN 0 0 ELVIA DAVISYudelka Daryl VISIT CLINIC 10 PSC MINUTES OFFICE 81478 SHANNA CAMEJO OUTPATIEN 0 0 Daryl BURT NEW 45 [facility] MINUTES . OFFICE 12748 [facility] HERNANDEZ OUTPATIEN 0 0 ELVIA Brito NEW 20 CLINIC MINUTES PSC OFFICE 92397 JENAE GODFREYUS, OUTPATIEN 0 0 ELVIA Brito VISIT URGENT 25 TREATMENT MINUTES ASSOC OFFICE 17466 DEREK MARILYNN TESHA OUTPATIEN 0 0 MEDICAL T NEW 45 SERV MINUTES FOUNDATIO OFFICE 38995 SURGICAL FLASH, OUTPATIEN 0 0 ASSOCIATI JON P T NEW 45 ON MINUTES [facility] 27742 [place] EPIFANIO, OUTPATIEN 0 0 ELVIA CALDWELL T NEW 45 URGENT MINUTES TREATMENT ASSOC
--- OUTSIDE RECORDS SUMMARY | 2016-05-22 17:50 | External Medical Summary Rpt ---
Author Author , Organization [employer] Address Unknown Phone Unavailable Care Team Providers Care Pourer Off Name Role Phone [facility], Unavailable Unavailable [facility] SOMALI ESOTERIC Unavailable Unavailable LABORATORI, [facility] LABORATORI AMISHA DITERICH MD, PSC, Unavailable Unavailable AMISHA DIETRICH MD, PSC AYOOB AND, AYOOB AND Unavailable Unavailable SHANNA BURT, Unavailable Unavailable LindaP.S.CAyush, SHANNA BURT M.D.P.S.C. [facility] Unavailable Unavailable [facility] Unavailable Unavailable MEDICAL GROUP, [facility] MARILYN SANDERS Unavailable Unavailable MARILYN LANE, MARILYN Unavailable Unavailable LANE BUX ANJ, BUX ANJ Unavailable Unavailable [facility] CELLAROSI - YORBA Unavailable Unavailable PAT, CELLAROSI - YORBA PAT ANTWON BASHIR, ANTWON BASHIR Unavailable Unavailable [facility], Unavailable Unavailable [facility] Unavailable Unavailable SPECIALIST, [facility] SPECIALIST [facility] # [id number], Unavailable Unavailable [facility] # [id number] [facility] Unavailable [place]available [place], [facility] [place] ESTUS LINDA, ESTUS LINDA Unavailable Unavailable ESTUS, JAVI, ESTUS, Unavailable Unavailable JAVI FINCHUM ELL, FINCHUM Unavailable Unavailable [facility] Unavailable Unavailable MEDICAL, [facility] Un[facility] Unavailable Unavailable HOSPITA, [facility] Un[facility] Unavailable CARE, [facility] CAYETANO SHARON G, Unavailable Unavailable CAYETANO, SHARON G FLASH, JON P, Unavailable Unavailable FLASH, JON P ANDREA BAR, ANDREA BAR Unavailable Unavailable [facility] Un[facility], [facility], Unavailable Unavailable [facility] KEEDY JAIRON, KEEDY JAIRON Unavailable Unavailable [facility] Unavailable Unavailable [facility]AT, [facility] Unavailable Unavailable [...] [facility], Unavailable Unavailable [facility] KAREN CRI, KAREN CRI Unavailable Unavailable SHAD LAURA, SHAD LAURA Unavailable Unavailable SHAD LAURA, SHAD LAURA Unavailable Unavailable THIEN FAYETTE URBAN Unavailable Unavailable COGOVT, THIEN FAYETTE URBAN COGOVT [facility] F[facility]AN Unavailable Unavailable COGOVT, THIEN FAYETTE URBAN COGOVT [facility] Unavailable Unavailable LABORATO, [facility] Unavailable Un[facility] Unavailable Unavailable LABORATORY, [facility] Unavailable Unavailable PHARMACY, [facility] LINGREEN DENNIS, Unavailable Unavailable LINGREEN DENNIS MYRA HAM, MYRA HAM Unavailable Unavailable MYRA HAM, MYRA HAM Unavailable Unavailable [facility] Unavailable Unavailable SERVICES, [facility] MITTLESTEADT KENISHA, Unavailable Unavailable MITTLESTEADT KENISHA MORRIN, MORRIN Unavailable Unavailable [facility] Unavailable Unavailable [facility], [facility], [facility]available Unavailable [facility], Unavailable Unavailable [facility] Unavailable Unavailable INCORPORAT, [facility] RABIEE ABD, RABIEE Unavailable Unavailable [facility] Unavailable Unavailable [facility] [place], [facility] Unavailable Unavailable [id number] # [phone], [facility] [id number] # [phone] MARILYNN SIB, MARILYNN SIB Unavailable Unavailable HEATHER NANCY, HEATHER NANCY Unavailable Unavailable [facility] SPRUIELL LAW, Unavailable Unavailable [facility], Unavailable Unavailable [facility], [facility] JACQUE AUUGSTO, JACQUE Unavailable Unavailable AUGUSTO JACQUE AUGUSTO, JACQUE Unavailable Unavailable AUGUSTO PHANI KAITLYNN, PHANI Unavailable Unavailable KAITLYNN PHANI KAITLYNN, PHANI Unavailable Unavailable KAITLYNN WADDLES RYA, WADDLES Unavailable Unavailable R[id number] # Unavailable Unavailable [id number], [facility] # [id number] [facility] # Unavailable Unavailable [id number], [facility] # 4892 DAVID HERCULES Unavailable Unavailable JEREMY STEWART, Unavailable Unavailable JEREMY HERNANDEZ W, SEMAJ W Unavailable Unavailable JEN MAT, JEN MAT Unavailable Unavailable Purpose Continuity of Care Document - 03-09-2009 through 2016 Problems Code Diagnosis DOS Provider Status M170 BILATERAL 04-04-2016 [facility] OSTEOARTHRI ASSOCIAT TIS OF KNEE [id number] PAIN IN 04-04-2016 [place] RIGHT [facility] ORTHOPEDIC ASSOCIAT X88842 PAIN IN 04-04-2016 [place] LEFT [facility] ORTHOPEDIC ASSOCIAT E119 TYPE 2 04-02-2016 [facility] MELLITUS MEDICAL WITHOUT GROUP COMPLICATIO NS G8929 OTHER 04-02-2016 [facility] PAIN MEDICAL GROUP I10 ESSENTIAL 04-02-2016 [facility] HYPERTENSIO MEDICAL N GROUP J431 PANLOBULAR 04-02-2016 [facility] K219 GASTRO-ESOP 04-02-2016 [facility] REFLUX HEALTH DISEASE MEDICAL WITHOUT GROUP ESOPHAGITIS M545 LOW BACK 04-02-2016 [facility] PAIN HEALTH MEDICAL GROUP 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-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 E14476 ALF 02-06-2016 [facility] CURRENT USE [facility]OS[facility] OF OPIATE INC ANALGESIC N12320 EFFUSION 12-02-2015 [facility] RIGHT KNEE [facility] M5116 INTERVERTEB 10-10-2015 [facility] RAL DISC [facility] D/O INC W/RADICULOP ATHY LUMB RGN O23769 OTHER LONG 10-10-2015 [facility] TERM [facility] CURRENT INC DRUG THERAPY O75808 SPONDYLOSIS 04-29-2015 [facility] W/O MEM HOS[facility] MYELOPATH/R INC ADICULOPATH Y LUMB RGN 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 ARTHRITIS , PSC UNSPECIFIED R10338 SPONDYLOSIS 03-18-2015 [facility] W/O MEM [facility] MYELOPATH/R INC ADICULPATHY LS RGN E785 HYPERLIPIDE 03-08-2015 [facility]RAIN [facility] UNSPECIFIED FAMILY CLINI M549 DORSALGIA 03-04-2015 [facility] UNSPECIFIED MEM HOSP INC M5030 OTH 02-14-2015 [facility] 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[facility] DISC INC DEGENERATIO N UNS CERV REGION G894 CHRONIC 12-06-2014 [facility] PAIN GROUND SYNDROME FAMILY CLINI 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 UNS CLINI 19836 DIAB W/O 11-05-2014 LAB [facility] COMP TYPE [facility] II/UNS NOT HOLDINGS STATED UNCNTRL 94543 DIAB 11-05-2014 LAB [facility] W/NEURO [facility] MANIFESTS HOLDINGS TYPE II/UNS NOT UNCNTRL 4019 UNSPECIFIED 11-05-2014 [facility] ESSENTIAL [facility] HYPERTENSIO HOLDINGS N 11951 UNSPECIFIED 11-05-2014 [facility] ARTHROPATHY HOLDINGS SITE UNSPECIFIED 62870 SHORTNESS 10-15-2014 [facility] [place] OF BREATH RADIOLOGY 7932 NONSPC ABN 10-15-2014 [place] [facility] COMM[facility]TIY RAD&OTH HOSPITA EXAM OTH INTRTHOR ORGN 62020 UNSPECIFIED 10-06-2014 [facility] SLEEP GROUND DISTURBANCE FAMILY CLINI 7823 EDEMA 07-08-2014 [facility] 50892 ESOPHAGEAL 06-21-2014 [facility] REFLUX GROUND FAMILY CLINI 3670 HYPERMETROP 12-07-2013 SPRUIELL IA LAW 4011 ESSENTIAL 09-25-2013 [facility] N, BENIGN 18252 IMPOTENCE 09-25-2013 [place] OF [facility]RGENT CARE ORIGIN 35128 OTHER 09-25-2013 [facility] FATIGUE 7213 LUMBOSACRAL 08-06-2013 [facility] SPONDYLOSIS SPECIALIST WITHOUT MYELOPATHY 94179 DEGEN 08-06-2013 [facility] LUMBAR/LUMB H PAIN OSACRAL SPECIALIST INTERVERTEB RAL DISC 12122 SPINAL STEN 08-06-2013 [facility] LUMB REG H PAIN W/O SPECIALIST NEUROGENIC CLAUDICATIO N 7244 THORACIC/CLARY 08-06-2013 [facility] MBOSACRAL H PAIN NEURITIS/RA SPECIALIST DICULITIS UNSPEC 90539 DISPLCMT 05-26-2013 [facility] INTERVERT OF [place] DISC W/O MYELOPATHY 7248 OTHER 05-26-2013 [facility] SYMPTOMS [facility] REFERABLE OF [place] TO BACK 7384 ACQUIRED 05-26-2013 [facility] SPONDYLOLIS [facility] THESIS OF [place] 27329 DIAB W/O 04-14-2013 [facility] COMP TYPE II/UNS TYPE UNCNTRL V700 ROUTINE 04-14-2013 [facility] GENERAL DIAGNOSTICS MEDICAL EXAM@HEALTH CARE FACL 41214 OTHER 12-08-2012 PHANI KAITLYNN CHRONIC PAIN 496 CHRONIC 12-08-[address] PHANI [address]LYNN [address] OBSTRUCTION NEC 7242 LUMBAGO 12-08-2012 PHANI KAITLYNN 98529 OBESITY, 07-30-2012 LAB [facility] OF UNSPECIFIED [facility] 37877 CRAMP OF 01-04-2012 [place] [facility]B [facility] 7140 RHEUMATOID 2012 MYRA HAM ARTHRITIS 21552 PRIMARY 2012 [facility] H[facility] LOCALIZED OSTEOARTHRO SIS LOWER LEG 91888 PAIN IN 12-19-2011 PHANI KAITLYNN JOINT PELVIC REGION AND THIGH 71626 PAIN IN 12-19-2011 [place] JOINT, [facility] 7245 UNSPECIFIED 12-19-2011 [facility] 01834 OTHER 12-19-2011 [facility] [place] NONSPECIFIC RADIOLOGY ABNORMAL FINDING OF LUNG FIELD 5369 UNSPECIFIED 09-10-2011 SHAD SANCHEZ FUNCTIONAL DISORDER OF STOMACH 7226 DEGENERATIO 09-10-2011 SHAD Jean Baptiste INTERVERTEB RAL DISC SITE UNSPEC 30371 DIARRHEA 09-10-2011 SHAD SANCHEZ 17781 MORBID 06-27-2011 SHAD SANCHEZ OBESITY V5869 LONG-TERM 06-25-2011 JACQUE CASAS (CURRENT) USE OF OTHER MEDICATIONS 41991 PEPT ULCR 06-17-2011 [facility] ACUT/CHRN HOSPITA W/O HEMOR PERF/OBST 09971 FEVER 06-17-2011 [place] UNSPECIFIED [facility] 32800 ABDOMINAL 06-17-2011 [facility] [place] PAIN RIGHT RADIOLOGY UPPER QUADRANT 00731 ABDOMINAL 06-17-2011 [place] PAIN, [facility]ASTRIC [facility] 88190 NAUSEA WITH 06-11-2011 [facility] 91349 ABDOMINAL 06-11-2011 THIEN FAYETTE PAIN, URBAN UNSPECIFIED COGOVT SITE 83916 OSTEOARTHRO 05-25-2011 JACQUE CASAS S UNSPEC WHETHER GEN/LOC UNSPEC SITE 7234 BRACHIAL 05-25-2011 JACQUE CASAS NEURITIS OR RADICULITIS NOS 7099 UNSPECIFIED 03-26-2011 JACQUE CASAS DISORDER OF SKIN&SUBCUT ANEOUS TISSUE 99787 PAIN IN 03-26-2011 JACQUE CASAS JOINT, SHOULDER REGION 7291 UNSPECIFIED 03-26-2011 JACQUE CASAS MYALGIA AND MYOSITIS 7224 DEGENERATIO 03-24-2011 [facility] OF SERV [facility] INTERVERTEB RAL DISC 37013 INJR OTH 03-24-2011 [place] [facility] SPEC SERV INTRATHR FOUNDATIO ORGN W/O OPN WND CAV OTH 920 CONTUSION 03-24-2011 [facility] OF FACE SERV SCALP AND FOUNDATION NECK EXCEPT EYE 45151 INJURY OF 03-24-2011 [place] [facility] FACE AND [...] NEURALGIA NEURITIS AND RADICULITIS V5883 ENCOUNTER 02-13-2011 [facility] THERAPEUTIC HOSP DRUG MONITORING 82069 UNSPECIFIED 08-10-2010 [place] [facility] CY V7644 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 7202 SACROILIITI 04-12-2010 OTERO S NOT BURT, ELSEWHERE [facility].D.P.S.C. CLASSIFIED 7862 COUGH 03-08-2010 [facility] 7931 NONSPEC 03-08-2010 [facility] [place] FIND RAD RADIOLOGY OTH EXAM BODY STRUCT LUNG FIELD 54951 CHEST PAIN 11-22-2009 NEW UNSPECIFIED [facility] PSC 3569 UNSPEC 09-02-2009 [facility] HEREDIT&IDI CLINIC OPATHIC LABORATORY PERIPHERAL NEUROPATHY 7866 SWELLING, 09-02-2009 [place] [facility] LUMP IN [facility]INIC [facility] CHEST 47655 OTHER 04-18-2009 [place] [facility] DISEASES OF SERV LUNG NOT FOUNDATIO ELSEWHERE CLASSIFIED 2357 NEOPLASM 04-01-2009 SURGICAL [facility] BEHAVIOR TRACH BRONCHUS&CLARY NG 7856 ENLARGEMENT 03-25-2009 [facility] [place] OF LYMPH RADIOLOGY NODES 7910 PROTEINURIA 03-09-2009 [facility] Medications Na ND Rx [...] 1- 8- 00 NG 52 MA ve MT 29 20 20 TO N DE 72 [...] 1- - 00 NG 52 MA ve MT 29 20 20 TO N DE 72 [...] 1- 1- 00 NG 52 MA ve MT 29 20 20 TO N DE 72 [...] 3- 1- 00 NG 26 S ve MT 20 20 20 TO MT DE 80 10 11 N CH 1 [...] 3- 3- 00 NG 26 S ve MT 20 20 20 TO MT DE 80 10 11 N CH 1 [...] 3- 3- 00 NG 26 S ve MT 20 20 20 TO MT DE 80 10 10 N CH 1 [...] 9- 9- 00 PH 91 Y ve MT 20 20 20 AR JA DE 81 10 10 MA NA 0 CY S 20 # MG 02 33 TA 2 BL ET LI 68 01 30 30 HO 60 WE Ac SI 18 -0 -[address] ti NO 00 TO 38 ve MS 51 20 20 WN 0 HE IL 80 10 10 NR -H [address] AR M Z MA 10 CY -1 2. 5 MG TA B Procedures Procedure DOS Code Location Performer Comment ARTHROCEN [place] [facility] JOINER 7 ORTHOPEDI ASPIR&/IN C J MAJOR ASSOCIAT JT/BURSA W/O US RADIOLOGI 26488 [place] EXAM 7 ORTHOPEDI KNEE C COMPLETE ASSOCIAT 4/MORE VIEWS INJECTION J1030 [facility] 7 ORTHOPEDI ORTHOPEDI METHYLPRE C C DNISOLONE ASSOCIAT ASSOCIAT ACETATE 40 MG HOSPITAL G0463 [facility] OUTPATIEN 6 [facility] MEM [facility] T CLIN INC INC VISIT ASSESS & MGMT PT DRUG TST G0477 [facility] PRESUMP;C 6 MEM HOSP MEM HOSP PBL BEING INC INC READ DC OPT OBV ONLY ARTHROCEN 27072 [facility] MARISEL 6 ORTHOPEDI ORTHOPEDI ASPIR&/IN C C J MAJOR ASSOCIAT ASSOCIAT JT/BURSA W/O US INJECTION J1030 [place] [address] METHYLPRE C DNISOLONE ASSOCIAT ACETATE 40 MG RADIOLOGI 67508 [facility]ISM C 6 HEALTH HEALTH EXAMINATI [facility] ON KNEE 3 VIEWS HOSPITAL [...] INC VISIT ASSESS & MGMT PT NJX 65900 AMISHA BUX ANJ DX/THER 6 MD KAUR, AGT PVRT PSC FACET JT LMBR/SAC 3+ LEVEL NJX 64129 AMISHA BUX ANJ DX/THER 6 MD KAUR, AGT PVRT PSC FACET JT LMBR/SAC 1 LEVEL NJX 54627 AMISHA BUX ANJ DX/THER 6 MD KAUR, AGT PVRT PSC FACET JT LMBR/SAC 2ND LEVEL DRUG TST G0477 [facility] PRESUMP;C 6 MEM HOSP MEM HOSP PBL BEING INC INC READ DC [place] OBV [place] NJX 05197 AMISHA KAREN CRI DX/THER 6 MD KAUR, AGT PVRT PSC FACET JT LMBR/SAC 3+ LEVEL NJX 83254 AMISHA KAREN CRI DX/THER 6 MD KAUR, AGT PVRT PSC FACET JT LMBR/SAC 2ND LEVEL NJX 99722 [facility] DX/THER 6 MEM HOS[facility] MEM HOSP AGT PVRT INC INC FACET JT LMBR/SAC 1 LEVEL THERAPEUT 65934 [facility] FARRAR IC PX 1/> 6 MEM HOSP MEM HOSP AREAS INC INC EACH 15 MIN EXERCISES THERAPEUT 89027 [facility] FARRAR IC PX 1/> 5 MEM HOSP MEM HOSP AREAS INC INC EACH 15 MIN EXERCISES APPL 12872 [facility] MODALITY 5 MEM HOSP MEM HOSP 1/> AREAS INC INC ELEC STIMJ UNATTENDE D APPL 07639 [facility] MODALITY 5 MEM HOSP MEM HOSP 1/> AREAS INC INC ULTRASOUN D EA 15 MIN APPL 24074 [facility] MODALITY 5 MEM HOSP MEM HOSP 1/> AREAS INC INC ULTRASOUN D EA 15 MIN APPL 64620 [facility] MODALITY 5 MEM HOSP MEM HOSP 1/> AREAS INC INC ELEC STIMJ UNATTENDE D THERAPEUT 13800 [facility] FARRAR IC PX 1/> 5 MEM HOSP MEM HOSP AREAS INC INC EACH 15 MIN EXERCISES APPL 16123 [facility] MODALITY 5 MEM HOSP MEM HOSP 1/> AREAS INC INC ELEC STIMJ UNATTENDE D APPL 45212 [facility] MODALITY 5 MEM HOSP MEM HOSP 1/> AREAS INC INC ULTRASOUN D EA 15 MIN APPL 98356 [facility] MODALITY 5 MEM HOS[facility] MEM HOSP 1/> AREAS INC INC ELEC STIMJ UNATTENDE D PHYSICAL 51526 [facility] F[facility] THERAPY 5 MEM HOSP MEM HOSP EVALUATIO INC INC N APPL 18425 [facility] MODALITY 5 MEM HOSP MEM HOSP 1/> AREAS INC INC ULTRASOUN D EA 15 MIN ALBUMIN 80962 LAB [facility] URINE 5 [facility] MICROALBU HOLDINGS HOLDINGS MIN QUANTIATI VE COMPREHEN 33914 LAB [facility] LAB [facility] SIVE 5 [facility] METABOLIC HOLDINGS HOLDINGS PANEL HEMOGLOBI 81988 LAB [facility] LAB LUCILA N 5 [facility] GLYCOSYLA HOLDINGS HOLDINGS RIDDHI A1C RHEUMATOI 99647 LAB [facility]UC[facility] D FACTOR 5 [facility] QUANTIT[place] [address] LAB L[facility] LAB L[facility] BLOOD/URI 5 [facility] ACID HOLDINGS HOLDINGS SEDIMENTA 75512 LAB [facility] TION RATE 5 [facility] RBC HOLDINGS HOLDINGS AUTOMATED RADIOLOGI 58246 [facility] EXAM 5 N N CHEST 2 COMMUNTIY COMMUNTIY VIEWS HOSPITA HOSPITA FRONTAL&L ATERAL URNLS DIP 07112 [facility] HEATHER CRUZ 5 GROUND STICK/TAB FAMILY LET RGNT CLINI NON-AUTO W/O MICRSCP COLLECTIO 98846 [facility] HEATHER CRUZ N VENOUS 5 GROUND BLOOD FAMILY VENIPUNCT CLINI URE HEMOGLOBI 54952 [facility] LAB LUCILA N 5 [facility] GLYCOSYLA HOLDINGS HOLDINGS RIDDHI A1C LIPID 37694 LAB [facility] LAB [facility] PANEL 5 [facility] HOLDINGS HOLDINGS GENERAL 71490 LAB L[facility] LAB LUCILA HEALTH 5 [facility] [place] [address] [facility] PROSTATE 4 DIAGNOSTI DIAGNOSTI SPECIFIC CS [place] [address] [facility] THYROID 4 DIAGNOSTI DIAGNOSTI STIMULATI CS CS NG INCORPORA HORMONE T TSH COMPREHEN 21666 [facility] SIVE 4 DIAGNOSTI DIAGNOSTI METABOLIC CS CS PANEL INCORPORA T LIPID 78790 [facility] PANEL 4 DIAGNOSTI DIAGNOSTI CS CS INCORPORA T BLOOD 63254 [facility] COUNT 4 DIAGNOSTI DIAGNOSTI COMPLETE CS CS AUTO&AUTO INCORPORA [place]IFRNTL [place] WBC NJX 66798 [facility] DX/THER 4 LTH PAIN DENNIS SBST SPECIALIS EPIDURAL/ T SUBARACH LUMBAR/SA CRAL FLUORO 76039 [facility] NEEDLE/CA 4 LTH PAIN DENNIS TH SPECIALIS SPINE/PAR T ASPINAL DX/THER INJECTION J1040 [facility] 4 LTH PAIN LTH PAIN METHYLPRE SPECIALIS SPECIALIS DNISOLONE T T ACETATE 80 MG LOCM Q9967 [facility] 300-399 4 LTH PAIN DENNIS MG/ML SPECIALIS IODINE T CONCENTRA TION PER ML MRI 95895 [facility] SPINAL 4 REGIONAL REGIONAL CANAL MEDICAL MEDICAL LUMBAR W/O CONTRAST MATERIAL HEMOGLOBI 10047 [facility] N 4 DIAGNOSTI DIAGNOSTI GLYCOSYLA CS CS RIDDHI A1C INCORPORA T HEMOGLOBI 46570 LAB [facility] LAB LUCILA N 3 OF AMERIC GLYCOSYLA MANUELA HOLDING RIDDHI A1C HOLDINGS BLOOD 98637 [facility] COUNT 3 [facility] COMPLETE AUTO&[place] [address] LAB L[facility] LAB [facility] PROSTATE 3 OF AMERIC SPECIFIC [facility] [place] [address] LAB [facility] LAB [facility] PROSTATE 3 OF AMERIC SPECIFIC [facility] HOLDING ANTIGEN HOLDINGS FREE COMPREHEN 25409 LAB L[facility] SIVE 3 OF AMERIC METABOLIC [place] [address] LAB L[facility] LAB [facility] THYROID 3 OF AMERIC STIMULATI [facility] HOLDING NG HOLDINGS HORMONE TSH COLLECTIO 63500 [facility] VENOUS 2 N N BLOOD [facility] VENIPUNCT HOSPITA HOSPITA URE POTASSIUM 12202 [facility] SERUM 2 N N PLASMA/WH [facility] OLE BLOOD HOSPITA HOSPITA DRUG SCR G0434 [facility] HAM [facility]RA [facility] NOT 2 CHROMATOG RAPHIC; ANY NUMBER PT ENC RADEX 77947 [facility] [place] JEN MAT HIPS 2 RADIOLOGY BILATERAL 2 VIEWS ANTEROPOS T PELVIS RADEX HIP 47291 [facility] 2 N N UNILATERA [facility] L HOSPITA HOSPITA COMPLETE MINIMUM 2 VIEWS ECG 70593 [facility] ROUTINE 2 N N ECG [facility] W/LEAST HOSPITA HOSPITA 12 LDS TRCG ONLY W/O I&R COLLECTIO 75963 [facility] N VENOUS 2 N N BLOOD [facility] VENIPUNCT HOSPITA HOSPITA URE COMPREHEN 27895 [facility] SIVE 2 N N METABOLIC [facility] PANEL HOSPITA HOSPITA RADEX 01030 [facility] SPINE 2 N N LUMBOSACR [facility] AL 2/3 HOSPITA HOSPITA VIEWS BLOOD 99624 [facility] COUNT 2 N N COMPLETE [facility] AUTO&AUTO HOSPITA HOSPITA DIFRNTL WBC RADIOLOGI 99277 [facility] C EXAM 2 N N CHEST 2 [facility] HOSPITA HOSPITA FRONTAL&L ATERAL OVA&MISTY 53626 SOMALI SOMALI ITES 2 ESOTERIC ESOTERIC DIRECT LABORATOR LABORATOR SMEARS I I CONCENTRA TION & [place] [address] SOMALI SOMALI SHIGA-LIK 2 ESOTERIC ESOTERIC E TOXIN LABORATOR LABORATOR I I CUL BACT 37880 SOMALI SOMALI STOOL 2 ESOTERIC ESOTERIC AEROBIC LABORATOR LABORATOR ISOL I I SALMONELL A&SHIGELL CUL BACT 77380 SOMALI SOMALI STOOL 2 ESOTERIC ESOTERIC AEROBIC LABORATOR LABORATOR ADDL I I PATHOGENS &[place] [address] [facility] LIPASE 2 N N [facility] HOSPITA HOSPITA THER 76718 [facility] PROPH/DX 2 N N NJX IV [facility] PUSH HOSPITA HOSPITA SINGLE/1S T SBST/DRUG THER 38617 [facility] PROPH/DX 2 N N NJX EA COMMUNITY [facility] SEQL IV HOSPITA HOSPITA PUSH SBST/DRUG FAC URNLS DIP 28020 [facility] 2 N N STICK/TAB COMMUNITY [facility] LET HOSPITA [place] [address] [facility] ABDOMEN & 2 N N PELVIS [facility] W/CONTRAS HOSPITA HOSPITA T MATERIAL THERAPEUT 45799 [facility] IC 2 N N INJECTION [facility] IV PUSH HOSPITA HOSPITA EACH NEW DRUG HI OSM Q9963 [facility] CONTRST 2 N N MATL [facility] [phone] HOSPITA HOSPITA MG/ML IODINE CONC ML INJECTION [id number] [facility] MORPHINE 2 N N SULFATE [facility] UP [place] [id number] [facility] INFUSION 2 N N HYDRATION [facility] EACH HOSPITA HOSPITA ADDITIONA L HOUR COMPREHEN [id number] [facility] SIVE 2 N N METABOLIC [facility] [place] [id number] [facility] AMYLASE 2 N N [facility] HOSPITA HOSPITA LOCM Q9967 [facility] [phone] 2 N N MG/ML [facility] IODINE HOSPITA HOSPITA CONCENTRA TION PER ML INJECTION [id number] [facility] 2 N N ONDANSETR [facility] ON HCL HOSPITA HOSPITA PER 1 MG BLOOD [id number] [facility] COUNT 2 N N COMPLETE [facility] AUTO&AUTO [place] [address] [facility] [place] [facility] BAR ABDOMINAL 2 RADIOLOGY [...] EMERGENCY COGOVT COGOVT TRANSPORT LEVEL 1 RADIOLOGI 11747 [place] [facility] AND C 2 MEDICAL EXAMINATI SERV ON [place] [address] [place] [facility] AND HEAD/BRAI 2 MEDICAL N W/O SERV CONTRAST FOUNDATIO MATERIAL N GROUND [id number] THIEN THIEN MILEAGE 2 FAYETTE FAYETTE PER URBAN URBAN STATUTE COGOVT COGOVT MILE RADIOLOGI 88284 [place] [facility] AND C 2 MEDICAL EXAMINATI SERV ON PELVIS [place]OUNDAT[facility] 1/[address] [place] [address] [place] [facility] AND CERVICAL 2 MEDICAL SPINE W/O SERV [place] [address] [facility] PROSTATE 1 CLINIC CLINIC SPECIFIC LABORATO LABORATO ANTIGEN TOTAL BASIC 46947 [facility] METABOLIC 1 CLINIC CLINIC PANEL [facility] LABORATO CALCIUM TOTAL CT THORAX 07259 [facility] [place] JEN MAT W/O 1 RADIOLOGY CONTRAST MATERIAL RADIOLOGI 93700 [facility] C EXAM 0 [facility] CHEST 2 URGENT VIEWS TREAT FRONTAL&L ATERAL ECHO 86614 [facility] R-T 0 [facility] 2D W/WO CLINIC M-MODE PSC REST&STRS CONT ECG DOP 29204 [facility] ECHOCARD 0 [facility] COLOR [facility]INIC FLOW PSC VELOCITY MAPPING DOPPLER 77527 [facility] ECHOCARD 0 [facility] PULSE CLINIC WAVE PSC W/SPECTRA L DISPLAY GLUCOSE 19988 [facility] QUANTITAT 0 CLINIC CLINIC [place] BLOOD LABORATO LABORATO XCPT REAGENT STRIP HEMOGLOBI 90749 [facility] N 0 CLINIC CLINIC GLYCOSYLA [facility]ORATO LABORATO RIDDHI A1C TRANSFERA 71842 [facility] SE 0 CLINIC CLINIC ALANINE [facility] LABORATO AMINO ALT SGPT BLOOD 82667 [facility] COUNT 0 CLINIC CLINIC COMPLETE LABORATOR LABORATOR AUTOMATED Y Y CYANOCOBA 71552 [facility] GABE 0 CLINIC CLINIC VITAMIN LABORATOR LABORATOR B-12 Y Y COMPREHEN 69025 [facility] SIVE 0 CLINIC CLINIC METABOLIC [place]OR[place] [address] [facility] THYROID 0 CLINIC CLINIC STIMULATI LABORATOR LABORATOR NG Y Y HORMONE TSH COMPREHEN 95989 [facility] SIVE 0 Subtextual INC Subtextual INC METABOLIC PANEL RADIOLOGI 12020 [facility], C EXAM 0 [facility] JAVI CHEST 2 URGENT VIEWS TREATMENT FRONTAL&L ASSOC ATERAL CT THORAX 05178 [facility] [place] CAYETANO, 0 RADIOLOGY SHARON G W/CONTRAS T MATERIAL [facility] 129[facility] EXAM [facility] JAVI CHEST 2 URGENT VIEWS TREATMENT FRONTAL&L ASSOC ATERAL Encounters Encounter Start End Date Code Location Performer Type Date OFFICE 99513 JO-ANN JONESLEY OUTPATIEN 7 7 ORTHOPEDI T VISIT C 15 ASSOCIAT MINUTES OFFICE 52925 ESTHELA BURCH OUTPATIEN 7 7 HEALTH T VISIT MEDICAL 25 GROUP MINUTES [facility] 6 HEALTH OUTPATIEN [facility] - 6 6 [facility] - 6 6 [facility] 6 6 [facility] 6 6 [facility] - 6 6 [facility] OFFICE 22784 AMISHA MIX OUTPATIEN 6 6 MD KAUR, T VISIT PSC 25 MINUTES [facility] - [facility] 6 [facility] INC T OFFICE 87845 [facility] CRUZ OUTPATIEN 6 6 GROUND T VISIT FAMILY 15 CLINI MINUTES [facility] 6 [facility] - 5 5 [facility] T OFFICE 43300 [facility] OUTPATIEN 5 5 [facility] T VISIT INC 10 MINUTES [facility] - [facility] 5 [facility] INC T OFFICE 24535 AMISHA JONES CRI OUTPATIEN 5 5 MD KAUR, T NEW 45 PSC MINUTES OFFICE 75420 [facility] CR[facility] OUTPATIEN 5 5 GROUND T VISIT FAMILY 15 CLINI MINUTES [facility] N OUTPATIEN COMMUNTIY T HOSPITA OFFICE 39314 [facility] OUTPATIEN 5 5 GROUND T VISIT FAMILY 15 CLINI MINUTES OFFICE 57023 [facility] OUTPATIEN 5 5 GROUND T VISIT FAMILY 15 CLINI MINUTES OFFICE 96700 [facility] OUTPATIEN 5 5 GROUND T VISIT FAMILY 15 CLINI MINUTES OFFICE 26250 [facility] OUTPATIEN 5 5 GROUND T VISIT FAMILY 25 CLINI MINUTES OFFICE 12050 SPRUIELL SPRUIELL OUTPATIEN 4 4 LAW LAW T NEW 30 MINUTES OFFICE 13790 [facility] RABIEE OUTPATIEN 4 4 N URGENT ABD T VISIT CARE 15 MINUTES OFFICE 78606 [facility] RABIEE OUTPATIEN 4 4 N URGENT ABD T VISIT CARE 15 MINUTES OFFICE 29338 [facility] RABIEE OUTPATIEN 4 4 N URGENT ABD T VISIT CARE 15 MINUTES [facility]OSP[facility] - 4 4 REGIONAL OUTPATIEN MEDICAL T OFFICE 61448 [facility] RUBI OUTPATIEN 4 4 N URGENT ABD T VISIT CARE 15 MINUTES OFFICE 47908 PHANI PHANI OUTPATIEN 3 3 KAITLYNN KAITLYNN T VISIT 15 MINUTES OFFICE 60294 PHANI PHANI OUTPATIEN 3 3 KAITLYNN KAITLYNN T VISIT 15 MINUTES OFFICE 15737 PHANI PHANI OUTPATIEN 3 3 KAITLYNN KAITLYNN T VISIT 15 MINUTES OFFICE 25201 PHANI PHANI OUTPATIEN 3 3 KAITLYNN KAITLYNN T VISIT 15 MINUTES HOSPITAL [facility] - 2 2 N OUTPATIEN COMMUNITY T HOSPITA OFFICE 18448 MYRA RACHELE JEFFREY OUTPATIEN 2 2 T NEW 45 MINUTES EMERGENCY 64269 RASHI SHOOK 2 2 EMERGENCY ADT KENISHA [facility] SERVICES T VISIT HIGH/URGE NT SEVERITY HOSPITAL [facility] - 2 2 N OUTPATIEN COMMUNITY T HOSPITA OFFICE 58143 PHANI PHANI OUTPATIEN 2 2 KAITLYNN KAITLYNN T VISIT 15 MINUTES OFFICE 84680 SHAD SANCHEZ OUTPATIEN 2 2 T VISIT 15 MINUTES OFFICE 62929 SHAD SANCHEZ OUTPATIEN 2 2 T VISIT 15 MINUTES OFFICE 93264 JACQUE SANTILLAN OUTPATIEN 2 2 AUGUSTO AUGUSTO T VISIT 15 MINUTES EMERGENCY 48444 [facility] 2 2 N DEPARTMEN COMMUNITY T VISIT HOSPITA HIGH/URGE NT SEVERITY [facility]PITAL [facility] - 2 2 N OUTPATIEN COMMUNITY T HOSPITA EMERGENCY 87727 CELLAROSI CELLAROSI DEPT 2 2 - YORBA - YORBA VISIT PAT PAT HIGH SEVERITY& THREAT FUNJ EMERGENCY 47007 [facility] SEMAJ W DEPT 2 2 JEFF VISIT EMERGENCY HIGH PHYSI SEVERITY& THREAT FUNCJ OFFICE 06874 JACQUE SANTILLAN OUTPATIEN 2 2 AUGUSTO AUGUSTO T VISIT 15 MINUTES OFFICE 52313 JACQUE SANTILLAN OUTPATIEN 2 2 AUGUSTO AUGUSTO T VISIT 15 MINUTES OFFICE 33531 JACQUE SANTILLAN OUTPATIEN 2 2 AUGUSTO AUGUSTO T VISIT 15 MINUTES OFFICE 99292 [facility] OUTPATIEN 1 1 [facility] T VISIT REHAB 10 HOSP [facility] - 1 1 [facility] OUTPATIEN REHAB T HOSP OFFICE 23621 JACQUE SANTILLAN OUTPATIEN 1 1 AUGUSTO AUGUSTO T VISIT 15 MINUTES OFFICE 42886 JACQUE SANTILLAN OUTPATIEN 1 1 AUGUSTO AUGUSTO T NEW 45 MINUTES OFFICE 36626 [facility] RUBI OUTPATIEN 1 1 N URGENT ABD T NEW 30 CARE MINUTES OFFICE 69299 NEW DAVID OUTPATIEN 1 1 ELVIA BALL T VISIT CLINIC 10 PSC MINUTES OFFICE 61382 SHANNA VALENCIA OUTPATIEN 1 1 AME BURT VISIT [facility] 15 . MINUTES OFFICE 03827 ADELAIDE PEREZAN OUTPATIEN 1 1 ELVIA BALL T VISIT CLINIC 15 PSC MINUTES OFFICE 22473 A[facility]LAIDE DAVID [facility] 15 PSC MINUTES OFFICE 22474 SHANNA CAMEJO OUTPATIEN 1 1 Daryl BURT VISIT [facility] 15 . MINUTES HOSPITAL [facility] - 1 1 N OUTPATIEN COMMUNITY T HOSPITA OFFICE 49309 [facility] LINDA OUTPATIEN 0 0 [place] T VISIT URGENT 25 TREAT MINUTES OFFICE 42539 ADELAIDE KULKARNI OUTPATIEN 0 0 ELVIA DAVISYudelka Daryl VISIT CLINIC 10 PSC MINUTES OFFICE 18250 SHANNA CAMEJO OUTPATIEN 0 0 Daryl BURT NEW 45 [facility] MINUTES . OFFICE 54511 ADELAIDE HERNANDEZ OUTPATIEN 0 0 ELVIA Brito NEW 20 CLINIC MINUTES PSC OFFICE 02869 JENAE GODFREYUS, OUTPATIEN 0 0 ELVIA Brito VISIT URGENT 25 TREATMENT MINUTES ASSOC OFFICE 62823 DEREK MARILYNN TESHA OUTPATIEN 0 0 MEDICAL T NEW 45 SERV MINUTES FOUNDATIO OFFICE 07082 SURGICAL FLASH, OUTPATIEN 0 0 ASSOCIATI JON P T NEW 45 ON MINUTES [facility] - 0 0 N [facility] - 0 0 N [facility] OFFICE 03264 MABIE EPIFANIO, OUTPATIEN 0 0 ELVIA CALDWELL T NEW 45 URGENT MINUTES TREATMENT ASSOC
--- OUTSIDE RECORDS SUMMARY | 2016-05-22 17:51 | External Medical Summary Rpt ---
Author Author [employer], [employer] Address Unknown Phone Unavailable
--- OUTSIDE RECORDS SUMMARY | 2016-05-22 17:51 | External Medical Summary Rpt ---
Demographics Preferred Language [place] Marital Status Unknown Jew Affiliation Unknown Race Unknown Ethnic Group Unknown Author Author , Organization [employer] Address Unknown Phone Unavailable Purpose Continuity of Care Document - through 2016 Immunization No patient found.
--- OUTSIDE RECORDS SUMMARY | 2016-05-22 17:51 | External Medical Summary Rpt ---
Demographics Preferred Language Citizen Of [place] Marital Status Unknown Scientology Affiliation Unknown Race Unknown Ethnic Group Unknown Author Author , Organization [employer] Address Unknown Phone Unavailable Purpose Continuity of Care Document - through 2016 Immunization No patient found.
== END ==
LOC: PM 13:58
PROC: 3E0R33Z Introduction of Anti-inflammatory into Spinal Canal, Percutaneous Approach (ICD-10-PCS; principal; 2016-05-22)
PROC: 3E0R3BZ Introduction of Anesthetic Agent into Spinal Canal, Percutaneous Approach (ICD-10-PCS; 2016-05-22)
DX: M51.16 Intervertebral disc disorders with radiculopathy, lumbar region (principal); M47.896 Other spondylosis, lumbar region
CPT/HCPCS: J1040; Q9966